=== PATIENT | male | born 1940 | race Caucasian/White ===

== ENCOUNTER 2021-08-10 16:10 | Observation (INO) | payer MEDICARE, MEDICAID, SELFPAY ==
[2021-08-10] VITALS (30 sets, daily range): BP systolic 112–141; BP diastolic 62–94; PULSE 63–76; RESP 12–23; TEMP 36.3–36.8; O2SAT 92–97
--- NOTE | 2021-08-10 16:15 | RT.EKG_ITS ---
APPROVED REPORT Exam: Resting ECG Reason for Exam: tia Patient Location: E HR:68 bpm ECG Measurements Heart Rate 68 AXIS MN 178 P 80 QRSd 139 QRS 1 QT 432 T -15 QTc 459 Conclusion Sinus rhythm...normal P axis, V-rate 60- 99 Right bundle branch block...QRSd>120, terminal axis(90,270). Sinus. RBBB. No STEMI. I have reviewed and interpreted ECG and agree with software generated interpretation.
--- NOTE | 2021-08-10 16:15 | DI.CT_ITS ---
Exam(s) CT BRAIN NECK CTA EXAM: CT BRAIN NECK CTA CLINICAL HISTORY: period of disorientation, r/o cva. TECHNIQUE: Imaging Protocol: Axial CT angiography was performed with multi-slice acquisition and mu lti-planar and/or 3D reconstructions. CONTRAST MATERIAL: Intravenous: Omnipaque 350 Contrast volume:85 mL COMPARISON: No exams were available for comparison FINDINGS: CT Head W/O and W: Ventricles and Extra axial spaces: Normal in size and morphology for the patient's age. Hemorrhage: None. Cerebral parenchyma: No acute territorial infarct. There are areas of decreased attenuation in the w richy matter most consistent with chronic microvascular ischemic disease. Midline shift: None. Brainstem/Cerebellum: Normal. Calvarium: Normal. Visualized Paranasal sinuses/Mastoids: Chronic maxillary sinusitis. The remaining visualized paranas al sinuses and mastoid air cells are clear. Soft Tissues: Unremarkable. Enhancement: Unremarkable. CTA Neck W: Common Carotid: Right: There is occlusion of the right common carotid artery. Left: No dissection, occlusion or significant stenosis. External Carotid: Right: No occlusion or significant stenosis. Left: No occlusion or significant stenosis. Internal Carotid: Right: Significant stenosis/occlusion of the proximal right internal carotid artery. Flow resumes i n the mid internal carotid artery probably via collateral flow from the external carotid artery. Left: No dissection, occlusion or significant stenosis. Vertebral Artery: Right: No dissection, occlusion or significant stenosis. There is a dominant right vertebral artery. Left: No dissection or occlusion. There is hkbn-no-nstesnlo stenosis at the origin of the left vert ebral artery. Lung Apices: Normal. Bones: Reversal of the normal cervical lordosis. Moderately severe degenerative changes in the cervi beth spine. Soft Tissues: Normal. CTA Brain W: Internal Carotid Arteries: Petrous: Normal. Cavernous: Dense calcification of the left internal carotid artery causing tcuz-qg-iyeulgef stenosis. Cerebral: Normal. Anterior Cerebral Arteries: Right: No aneurysm, occlusion or significant stenosis. Left: No aneurysm, occlusion or significant stenosis. Middle Cerebral Arteries: Right: No aneurysm, occlusion or significant stenosis. Left: No aneurysm, occlusion or significant stenosis. Posterior cerebral Arteries: Right: No aneurysm, occlusion or significant stenosis. Left: No aneurysm, occlusion or significant stenosis. Vertebral Arteries: Right: No aneurysm, occlusion or significant stenosis. Left: No aneurysm, occlusion or significant stenosis. Basilar Artery: No aneurysm, occlusion or significant stenosis. IMPRESSION: 1. Boch-qg-gaglwtkq stenosis of the cavernous right ICA. 2. No acute intracranial process. 3. Occlusion of the right common carotid artery. 4. Occlusion of the proximal right ICA with reconstitution at its midpoint. 5. Oagk-xk-rihcbrib stenosis at the origin of the left vertebral artery. RADIATION DOSE DELIVERED: 2,579.63mGy.cm Total DLP DATA REPOSITORY: All CT scans at this facility are submitted to the National Radiology Data Registry (NRDR) Dose Index Registry (DIR) with the [employer] (ACR). RADIATION OPTIMIZATION: All CT scans at this facility use at least one of these dose optimization te chniques: automated exposure control; mA and/or kV adjustment per patient size (includes targeted exa ms where dose is matched to clinical indication); or iterative reconstruction.
--- NOTE | 2021-08-10 16:15 | DI.RAD_ITS ---
Exam(s) XR CHEST 2V PA LATERAL EXAM: XR CHEST 2V PA LATERAL CLINICAL HISTORY: possible tia, r/o acute disease TECHNIQUE: 2D digital imaging was performed. COMPARISON: No exams were available for comparison FINDINGS: MEDIASTINUM: Normal. HEART: Normal. PULMONARY VASCULATURE: Normal. LUNGS: No focal consolidating infiltrate. Mild atelectasis in the lung bases. PLEURAL SPACE: No pleural effusion or pneumothorax. BONE:Within normal limits for the patient's age. OTHER FINDINGS:Normal. IMPRESSION: No focal consolidating infiltrate or evidence of congestive heart failure. DATA REPOSITORY: RADIATION DOSE DELIVERED:
[2021-08-10] MEDS: Normal Saline 500 ML IV (16:40)
[2021-08-10 16:41] LABS: Abs Immature Grans 0.02 10^3/uL (0.0-0.06); Absolute Basophil Count 0.06 10^3/uL (0.0-0.2); Absolute Eosinophil Count 0.26 10^3/uL (0.0-0.7); Absolute Lymphocyte Count 2.96 10^3/uL (1.2-3.4); Absolute Monocyte Count 0.73 10^3/uL (0.1-0.8); Basophils % 0.8; Eosinophils % 3.5; HCT 36.9 % (40.0-50.0); HGB 12.2 g/dL (13.5-17.5); Immature Grans % 0.3; Lymphocytes % 39.8; MCH 31.9 pg (27.0-33.0); MCHC 33.1 % (32.0-36.0); MCV 96.3 fL (80-95); MPV 9.8 fL (8.0-11.0); Monocytes % 9.8; Neutrophils % 45.8; Nucleated RBC 0 %; Platelet Count 153 10^3/uL (130-400); RBC 3.83 10^6/uL (4.36-5.78); RDW 13.2 % (11.8-14.1); RDW-SD 47.1 fL; WBC 7.43 10^3/uL (4.4-10.8)
[2021-08-10 16:57] LABS: ALT 16 U/L (16-63); AST 18 U/L (15-37); Albumin 3.3 g/dL (3.4-5.0); Alkaline Phosphatase 67 U/L (46-116); Anion Gap 6.5 mmol/L (3-11); BUN 20 mg/dL (7-18); Bilirubin, Total 0.5 mg/dL (0.2-1.0); CO2 28.5 mmol/L (21.0-32.0); CREATININE 1.1 mg/dL (0.70-1.30); Calcium 8.6 mg/dL (8.5-10.1); Chloride 106 mmol/L (98-107); Glucose 97 mg/dL (74-106); Potassium 4.1 mmol/L (3.5-5.1); Sodium 141 mmol/L (136-145); Total Protein 7.4 g/dL (6.4-8.2); Troponin I < 0.05 ng/mL (<0.06)
[2021-08-10 16:58] LABS: Magnesium 2.1 mg/dL (1.8-2.4)
--- NOTE | 2021-08-10 17:03 | W.ED.GENAD ---
Discharge Plan Disposition Patient Disposition: [facility] INPATIENT Condition: Stable Discharge Details Clinical Impression: TIA (transient ischemic attack), Carotid artery stenosis, Right carotid artery occlusion Primary Care Provider: Freddie Celis ED Provider: Lamar Ryan Home Meds and New Rx's Prescriptions: No Action tamsulosin 0.4 mg capsule 0.4 mg PO DAILY Qty: 90 RF: 3 latanoprost 2.5 ML drops 1 drp OU HS RF: 0 aspirin [Aspirin Low-Strength] 81 MG tablet,chewable 81 mg PO DAILY Qty: 30 RF: 2 Ketoconazole 15 GM CREAM..G. 1 applic Topical every other day Qty: 60 RF: 4 triamcinolone acetonide 80 GM ointment 1 applic Topical BID Qty: 80 RF: 2 Medical Decision Making 81-year-old male with a history of BPH, coronary artery disease, colon cancer status post hemicolectomy who presents for evaluation after a 3-hour period of confusion, disorientation for evaluation and admission for possible TIA per [facility] care. Patient appears comfortable and nontoxic. He has no focal deficits on exam. He is oriented x3. EKG notes a rate of 68, sinus, right bundle branch block, no STEMI and nondiagnostic. Differential diagnosis includes TIA, CVA, dehydration, arrhythmia, electrolyte abnormality, UTI. Will place an IV, bolus IV fluids, screening labs, urinalysis, CTA head and neck and chest x-ray. Labs and imaging reviewed. White blood cell count 7. Hemoglobin 12. Normal electrolytes. Troponin negative. Chest x-ray negative. CTA head: IMPRESSION: 1. No acute intracranial abnormality. Changes of an acute infarct may not be visible on CT for up to 24 to 48 hours. 2. Kulz-ga-ksnbdido stenosis cavernous right ICA. CTA neck notes: IMPRESSION: 1. Occlusion right common carotid artery. 2. Diminished flow/enhancement right ICA via collateral flow from the ECA. Severe apparent stenosis proximal right ICA, with segment of moderate to severe stenosis at the mid cervical segment right ICA. 3. Kinb-ud-zjhqfeza stenosis origin left vertebral artery. Case discussed with [facility] neurology who reviewed the CTA images. Patient has significant vascular disease but this may be chronic. Agrees with plan for admission and MRI brain tomorrow for possible TIA. Recommends adding Plavix 75 mg p.o. daily to his 81 mg aspirin regimen for dual antiplatelet therapy. Case discussed with hospitalist who accepts patient for admission. Results and plan reviewed with patient and niece who are agreeable with plan. Patient states he is not taking 81 mg aspirin daily. We will add a dose of this now. Medical Records Medical records reviewed: Yes I reviewed the patient's medical records. Imaging Data Radiologic Study: Radiologist's impression: CT Angiography Head With Contrast, Arteriography Exam date and time: 08/10/2021 4:20 PM Age: 81 years old Clinical indication: Other: Period of disorientation, R/O CVA TECHNIQUE: Imaging protocol: Computed tomography angiography of the head with contrast. Exam focused on the arteries. 3D rendering (Not supervised by radiologist): MIP and/or 3D reconstructed images were created by the technologist. Contrast material: OMNIPAQUE 350; Contrast volume: 85 ml; Contrast route: INTRAVENOUS (IV); COMPARISON: No relevant prior studies available. FINDINGS: ANTERIOR CIRCULATION: Right internal carotid artery: Keib-fp-ctttuuve stenosis cavernous right ICA. Right middle cerebral artery: Unremarkable. No occlusion or significant stenosis. No aneurysm. Right anterior cerebral artery: Unremarkable. No occlusion or significant stenosis. No aneurysm. Left internal carotid artery: Unremarkable. Intracranial segment is patent with no significant stenosis. No aneurysm. Left middle cerebral artery: Unremarkable. No occlusion or significant stenosis. No aneurysm. Left anterior cerebral artery: Unremarkable. No occlusion or significant stenosis. No aneurysm. POSTERIOR CIRCULATION: Right vertebral artery: Unremarkable. No occlusion or significant stenosis. No aneurysm. Left vertebral artery: Unremarkable. No occlusion or significant stenosis. No aneurysm. Basilar artery: Unremarkable. No occlusion or significant stenosis. No aneurysm. Right posterior cerebral artery: Unremarkable. No occlusion or significant stenosis. No aneurysm. Left posterior cerebral artery: Unremarkable. No occlusion or significant stenosis. No aneurysm. Brain: Hypodensities at the basal ganglia consistent with remote lacunar infarctions. Moderate small vessel ischemic changes in the perventricular white matter. No evidence of an acute cortical infarct. Cerebral ventricles: Diffuse global atrophy. No abnormal extra-axial fluid collections are identified. No midline shift or herniation. Bones/joints: Old facial fractures. Soft tissues: Unremarkable. Paranasal sinuses: Minimal paranasal sinus disease. IMPRESSION: 1. No acute intracranial abnormality. Changes of an acute infarct may not be visible on CT for up to 24 to 48 hours. 2. Euak-tm-bdglbhfu stenosis cavernous right ICA. CT Angiography Neck With Contrast Exam date and time: 08/10/2021 4:20 PM Age: 81 years old Clinical indication: Other: Period of disorientation, R/O CVA TECHNIQUE: Imaging protocol: Computed tomography angiography of the neck with contrast. 3D rendering (Not supervised by radiologist): MIP and/or 3D reconstructed images were created by the technologist. Radiation optimization: All CT scans at this facility use at least one of these dose optimization techniques: automated exposure control; mA and/or kV adjustment per patient size (includes targeted exams where dose is matched to clinical indication); or iterative reconstruction. Contrast material: OMNIPAQUE 350; Contrast volume: 85 ml; Contrast route: INTRAVENOUS (IV); COMPARISON: No relevant prior studies available. FINDINGS: Right common carotid artery: Occlusion right common carotid artery. Right internal carotid artery: See Right external carotid artery finding. Right external carotid artery: Diminished flow/enhancement right ICA via collateral flow from the ECA. Severe apparent stenosis proximal right ICA, with segment of moderate to severe stenosis at the mid cervical segment right ICA. Left common carotid artery: No stenosis. No dissection or occlusion. Left internal carotid artery: No stenosis of the extracranial segment. No dissection or occlusion. Left external carotid artery: No occlusion or stenosis of the origin. Right vertebral artery: No stenosis. No dissection or occlusion. Right vertebral artery dominant. Left vertebral artery: Jwsz-rp-wpvvckzd stenosis origin left vertebral artery. Remainder of the left vertebral artery patent and unremarkable. Soft tissues: Normal. No significant soft tissue swelling. Bones/joints: No acute fracture. IMPRESSION: 1. Occlusion right common carotid artery. 2. Diminished flow/enhancement right ICA via collateral flow from the ECA. Severe apparent stenosis proximal right ICA, with segment of moderate to severe stenosis at the mid cervical segment right ICA. 3. Iget-yr-cyularwk stenosis origin left vertebral artery. XR Chest Exam date and time: 08/10/2021 4:21 PM Age: 81 years old Clinical indication: Patient HX: Possible TIA, ro/o acute disease TECHNIQUE: Imaging protocol: XR of the chest. Views: 2 views. COMPARISON: CR CHEST 2 VIEWS PA,LAT 09/11/2016 2:57 PM FINDINGS: Lungs: Pulmonary vascular markings upper normal. Mild airspace disease and/or atelectasis both lung bases. Pleural spaces: Unremarkable. No pleural effusion. No pneumothorax. Heart/Mediastinum: Mild cardiomegaly. Bones/joints: Unremarkable. IMPRESSION: Mild airspace disease and/or atelectasis both lung bases. Lab Data Lab results reviewed: Yes I reviewed the patient's lab results. Labs: Laboratory Tests Range/Units 08/10/21 08/10/21 08/10/21 16:20 16:20 16:20 WBC (4.4-10.8) 10^3/uL 7.43 RBC (4.36-5.78) 10^6/uL 3.83 L Hgb (13.5-17.5) g/dL 12.2 L Hct (40.0-50.0) % 36.9 L MCV (80-95) fL 96.3 H MCH (27.0-33.0) pg 31.9 MCHC (32.0-36.0) % 33.1 RDW (11.8-14.1) % 13.2 Plt Count (130-400) 10^3/uL 153 MPV (8.0-11.0) fL 9.8 Immature Gran % 0.3 Neutrophils % 45.8 Lymphocytes % 39.8 Monocytes % 9.8 Eosinophils % 3.5 Basophils % 0.8 Nucleated RBC % % 0 Absolute Neutrophils (1.2-6.7) 10^3/uL 3.40 Absolute Lymphocytes (1.2-3.4) 10^3/uL 2.96 Absolute Monocytes (0.1-0.8) 10^3/uL 0.73 Absolute Eosinophils (0.0-0.7) 10^3/uL 0.26 Absolute Basophils (0.0-0.2) 10^3/uL 0.06 Sodium (136-145) mmol/L 141 Potassium (3.5-5.1) mmol/L 4.1 Chloride (98-107) mmol/L 106 Carbon Dioxide (21.0-32.0) mmol/L 28.5 Anion Gap (3-11) mmol/L 6.5 BUN (7-18) mg/dL 20 H Creatinine (0.70-1.30) mg/dL 1.1 Estimated GFR/1.73 m2 (mL/min/1.73m2) >= 60.00 Glucose (74-106) mg/dL 97 Calcium (8.5-10.1) mg/dL 8.6 Magnesium (1.8-2.4) mg/dL 2.1 Total Bilirubin (0.2-1.0) mg/dL 0.5 AST (15-37) U/L 18 ALT (16-63) U/L 16 Alkaline Phosphatase (46-116) U/L 67 Troponin I (<0.06) ng/mL < 0.05 Total Protein (6.4-8.2) g/dL 7.4 Albumin (3.4-5.0) g/dL 3.3 L ECG Data Attestation: I personally reviewed and interpreted this ECG (s) as follows: Interpretation: rate of 68, sinus. RBBB. No STEMI. HPI General Mode of arrival: wheelchair. Date/Time Provider Initiated Documentation: 08/10/21 16:15. Limitations to Documentation: no limitations. Information obtained by: patient and family. HPI Narrative: Patient is a an 81-year-old male with a history of BPH, coronary artery disease, colon cancer with hemicolectomy and hernia repair presents for a 3-hour period of agitation, disorientation and confusion today for possible TIA and admission per [facility]. Patient lives at the [place] and use his electric scooter to go to [employer] today. The staff there know him well and they note that patient appeared agitated and confused. They called patient's niece to pick him up and she noted that he appeared unlike his baseline. 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 She states patient appears more like his baseline at present. Patient does endorse that he did feel confused. Patient is currently oriented x3. He denies any headache, blurry vision, slurred speech, chest pain, shortness of breath, abdominal pain, vomiting, diarrhea, urinary symptoms, unilateral numbness or weakness. Related Data Home Medications Medication Instructions Recorded Confirmed aspirin [Aspirin Low-Strength] 81 mg PO DAILY #30 tab-cap 08/28/15 08/10/21 latanoprost 1 drp OU HS drp 08/28/15 08/10/21 triamcinolone acetonide 1 applic TOPICAL BID #80 gm 01/29/18 08/10/21 tamsulosin 0.4 mg capsule 0.4 mg PO DAILY #90 cap 10/27/20 08/10/21 Previous Rx's Medication Instructions Recorded triamcinolone acetonide 1 applic TOPICAL BID #80 gm 01/29/18 tamsulosin 0.4 mg capsule 0.4 mg PO DAILY #90 cap 10/27/20 Allergies Allergy/AdvReac Type Severity Reaction Status Date / Time terbinafine Allergy Severe swelling Verified 08/10/21 16:36 and redness of face General Stated Complaint: CVA/TIA MONTEZ: 2 Review of Systems All systems reviewed & are unremarkable except as noted in HPI and below Constitutional Constitutional: Reports as per HPI, Denies chills and Denies fever(s) Eyes Eyes: Denies blurry vision ENT Ears, Nose, Mouth, and Throat: Denies dizziness, Denies sore throat and Denies throat swelling Cardiovascular Cardiovascular: Denies chest pain and Denies dyspnea Respiratory Respiratory: Denies cough and Denies dyspnea Gastrointestinal Gastrointestinal: Denies abdominal pain, Denies diarrhea and Denies vomiting Genitourinary Genitourinary: Denies hematuria and Denies dysuria Musculoskeletal Musculoskeletal: Denies back pain and Denies numbness Integumentary/Breasts Skin/Breast: Denies lesions and Denies rash Neurologic Neurologic: Reports confusion, Denies dizziness, Denies localized weakness and Denies numbness Psychiatric Psychiatric: Reports confusion Allergic/Immunologic Allergic/Immunologic: Denies throat swelling [facility] Medical History (Updated 08/10/21 @ 19:23 by Lamar Ryan DO) Aortic valve sclerosis History of hemicolectomy Malignant neoplasm of intestinal tract Obstruction of right carotid artery Tinea pedis Surgical History (Updated 07/31/19 @ 11:36 by Ramu Patel) Extraction of cataract B/L 01/2015 Hemicolectomy 06/03/15; [facility]; RIGHT Hernia Repair, Incisional (08/10/16) Family History Brother Personal history of malignant neoplasm PROSTATE Brother No problems noted. Mother No problems noted. Father No problems noted. Social History (Updated 08/07/18 @ 14:42 by Edith Augustin) Smoking/Tobacco Use Status: Former Tobacco Use Smoking risk assessment performed?: Yes Alcohol Intake: never Drug use: Never Substance use type: does not use Frequency: other Details: STRETCHES DAILY Seatbelt use: always Exam Const General: cooperative and no acute distress HENMT Head: normal to inspection Face and sinus: normal facial exam Eyes General: appearance normal, both eyes and all related structures Pupils: PERRL EOM: EOM intact bilaterally Neck Neck: normal visual inspection and No submandibular swelling Lymphatic: no lymphadenopathy noted Chest Chest: normal inspection of the chest and no tenderness Resp Effort & Inspection: normal respiratory effort and able to speak in complete sentences Auscultation: clear to auscultation bilaterally Cardio Rate: regular rate Rhythm: regular rhythm GI Inspection: normal to inspection Palpation: soft, not firm, not rigid and nontender Auscultation: normal bowel sounds Back/Spine/Pelvis Thoracic/Lumbar Spine: thoracic and lumbar spine normal to inspection Skin General skin exam: no rashes or lesions noted Neuro General: patient alert, patient awake, patient oriented x3, moves all extremities, no meningeal signs and no focal motor deficits Cranial Nerves: CN's II-XI intact bilaterally Cognition: normal cognition Speech: speech normal Motor: muscle tone normal throughout, strength 5/5 throughout and no pronator drift Sensory Exam: no sensory deficits noted Extrem General: normal to inspection, full ROM, capillary refill normal, no calf tenderness bilaterally and no edema Psych Appearance: grossly normal Mental Status: mental status grossly normal Speech and Movement: speech and movement normal Affect: normal affect Course Vital Signs Vital signs: Vital Signs Temperature 97.3 F L 08/10/21 16:23 Pulse 70 08/10/21 16:23 Respiratory Rate 13 08/10/21 16:23 Blood Pressure 141/75 H 08/10/21 16:23 Pulse Oximetry 97 08/10/21 16:23 Temperature 97.3 F L 08/10/21 16:23 Temperature Source Skin 08/10/21 16:23 Pulse 70 08/10/21 16:23 Respiratory Rate 13 08/10/21 16:23 Respiratory Effort Non-Labored 08/10/21 16:23 Blood Pressure 141/75 H 08/10/21 16:23 Blood Pressure Position Supine 08/10/21 16:23 Pulse Oximetry 97 08/10/21 16:23 Oxygen Delivery Method Room Air 08/10/21 16:23 Oxygen Flow Rate 0 08/10/21 16:23 Pain Level 0 08/10/21 16:23 Lab/Test Results Lab/Test Results: Laboratory Tests Range/Units 08/10/21 08/10/21 08/10/21 16:20 16:20 16:20 WBC (4.4-10.8) 10^3/uL 7.43 RBC (4.36-5.78) 10^6/uL 3.83 L Hgb (13.5-17.5) g/dL 12.2 L Hct (40.0-50.0) % 36.9 L MCV (80-95) fL 96.3 H MCH (27.0-33.0) pg 31.9 MCHC (32.0-36.0) % 33.1 RDW (11.8-14.1) % 13.2 Plt Count (130-400) 10^3/uL 153 MPV (8.0-11.0) fL 9.8 Immature Gran % 0.3 Neutrophils % 45.8 Lymphocytes % 39.8 Monocytes % 9.8 Eosinophils % 3.5 Basophils % 0.8 Nucleated RBC % % 0 Absolute Neutrophils (1.2-6.7) 10^3/uL 3.40 Absolute Lymphocytes (1.2-3.4) 10^3/uL 2.96 Absolute Monocytes (0.1-0.8) 10^3/uL 0.73 Absolute Eosinophils (0.0-0.7) 10^3/uL 0.26 Absolute Basophils (0.0-0.2) 10^3/uL 0.06 Sodium (136-145) mmol/L 141 Potassium (3.5-5.1) mmol/L 4.1 Chloride (98-107) mmol/L 106 Carbon Dioxide (21.0-32.0) mmol/L 28.5 Anion Gap (3-11) mmol/L 6.5 BUN (7-18) mg/dL 20 H Creatinine (0.70-1.30) mg/dL 1.1 Estimated GFR/1.73 m2 (mL/min/1.73m2) >= 60.00 Glucose (74-106) mg/dL 97 Calcium (8.5-10.1) mg/dL 8.6 Magnesium (1.8-2.4) mg/dL 2.1 Total Bilirubin (0.2-1.0) mg/dL 0.5 AST (15-37) U/L 18 ALT (16-63) U/L 16 Alkaline Phosphatase (46-116) U/L 67 Troponin I (<0.06) ng/mL < 0.05 Total Protein (6.4-8.2) g/dL 7.4 Albumin (3.4-5.0) g/dL 3.3 L
[2021-08-10] MEDS: Omnipaque 350 MG/ML 100 ML BTL IV (18:05)
--- NOTE | 2021-08-10 18:05 | DI.VRAD_ITS ---
PROCEDURE INFORMATION: Exam: XR Chest Exam date and time: 08/10/2021 4:21 PM Age: 81 years old Clinical indication: Patient HX: Possible TIA, ro/o acute disease TECHNIQUE: Imaging protocol: XR of the chest. Views: 2 views. COMPARISON: CR CHEST 2 VIEWS PA,LAT 09/11/2016 2:57 PM FINDINGS: Lungs: Pulmonary vascular markings upper normal. Mild airspace disease and/or atelectasis both lung bases. Pleural spaces: Unremarkable. No pleural effusion. No pneumothorax. Heart/Mediastinum: Mild cardiomegaly. Bones/joints: Unremarkable. IMPRESSION: Mild airspace disease and/or atelectasis both lung bases. Dictated and Authenticated by: Chris Ayala MD. Ordering:NICHOLAS Newton MD
[2021-08-10] MEDS: Normal Saline Flush 10 ML SYR IVP (18:06)
--- NOTE | 2021-08-10 18:37 | DI.VRAD_ITS ---
PROCEDURE INFORMATION: Exam: CT Angiography Head With Contrast, Arteriography Exam date and time: 08/10/2021 4:20 PM Age: 81 years old Clinical indication: Other: Period of disorientation, R/O CVA TECHNIQUE: Imaging protocol: Computed tomography angiography of the head with contrast. Exam focused on the arteries. 3D rendering (Not supervised by radiologist): MIP and/or 3D reconstructed images were created by the technologist. Contrast material: OMNIPAQUE 350; Contrast volume: 85 ml; Contrast route: INTRAVENOUS (IV); COMPARISON: No relevant prior studies available. FINDINGS: ANTERIOR CIRCULATION: Right internal carotid artery: Lziy-hh-yrwhicyc stenosis cavernous right ICA. Right middle cerebral artery: Unremarkable. No occlusion or significant stenosis. No aneurysm. Right anterior cerebral artery: Unremarkable. No occlusion or significant stenosis. No aneurysm. Left internal carotid artery: Unremarkable. Intracranial segment is patent with no significant stenosis. No aneurysm. Left middle cerebral artery: Unremarkable. No occlusion or significant stenosis. No aneurysm. Left anterior cerebral artery: Unremarkable. No occlusion or significant stenosis. No aneurysm. POSTERIOR CIRCULATION: Right vertebral artery: Unremarkable. No occlusion or significant stenosis. No aneurysm. Left vertebral artery: Unremarkable. No occlusion or significant stenosis. No aneurysm. Basilar artery: Unremarkable. No occlusion or significant stenosis. No aneurysm. Right posterior cerebral artery: Unremarkable. No occlusion or significant stenosis. No aneurysm. Left posterior cerebral artery: Unremarkable. No occlusion or significant stenosis. No aneurysm. Brain: Hypodensities at the basal ganglia consistent with remote lacunar infarctions. Moderate small vessel ischemic changes in the perventricular white matter. No evidence of an acute cortical infarct. Cerebral ventricles: Diffuse global atrophy. No abnormal extra-axial fluid collections are identified. No midline shift or herniation. Bones/joints: Old facial fractures. Soft tissues: Unremarkable. Paranasal sinuses: Minimal paranasal sinus disease. IMPRESSION: 1. No acute intracranial abnormality. Changes of an acute infarct may not be visible on CT for up to 24 to 48 hours. 2. Acmd-na-bqohzloh stenosis cavernous right ICA. PROCEDURE INFORMATION: Exam: CT Angiography Neck With Contrast Exam date and time: 08/10/2021 4:20 PM Age: 81 years old Clinical indication: Other: Period of disorientation, R/O CVA TECHNIQUE: Imaging protocol: Computed tomography angiography of the neck with contrast. 3D rendering (Not supervised by radiologist): MIP and/or 3D reconstructed images were created by the technologist. Radiation optimization: All CT scans at this facility use at least one of these dose optimization techniques: automated exposure control; mA and/or kV adjustment per patient size (includes targeted exams where dose is matched to clinical indication); or iterative reconstruction. Contrast material: OMNIPAQUE 350; Contrast volume: 85 ml; Contrast route: INTRAVENOUS (IV); COMPARISON: No relevant prior studies available. FINDINGS: Right common carotid artery: Occlusion right common carotid artery. Right internal carotid artery: See Right external carotid artery finding. Right external carotid artery: Diminished flow/enhancement right ICA via collateral flow from the ECA. Severe apparent stenosis proximal right ICA, with segment of moderate to severe stenosis at the mid cervical segment right ICA. Left common carotid artery: No stenosis. No dissection or occlusion. Left internal carotid artery: No stenosis of the extracranial segment. No dissection or occlusion. Left external carotid artery: No occlusion or stenosis of the origin. Right vertebral artery: No stenosis. No dissection or occlusion. Right vertebral artery dominant. Left vertebral artery: Nwjc-ki-kkywokpn stenosis origin left vertebral artery. Remainder of the left vertebral artery patent and unremarkable. Soft tissues: Normal. No significant soft tissue swelling. Bones/joints: No acute fracture. IMPRESSION: 1. Occlusion right common carotid artery. 2. Diminished flow/enhancement right ICA via collateral flow from the ECA. Severe apparent stenosis proximal right ICA, with segment of moderate to severe stenosis at the mid cervical segment right ICA. 3. Fidd-vb-jqbzyxvi stenosis origin left vertebral artery. REFERENCES: NASCET CRITERIA. The degree of internal carotid artery stenosis is based on NASCET criteria. Normal is no stenosis. Mild is less than 50% stenosis. Moderate is 50-69% stenosis. Severe is 70% to 99% stenosis. Total occlusion is no detectable patent lumen. Dictated and Authenticated by: Chris Ayala MD. Ordering:NICHOLAS Newton MD
[2021-08-10 19:41] LABS: Source Nasal/Nares
[2021-08-10] MEDS: Clopidogrel 75 MG TAB PO (20:16)
--- NOTE | 2021-08-10 21:24 | W.PM.HP.N ---
Date of service: 08/10/21 Time of Service: 21:25 Assessment and Plan Assessment and plan (1) TIA (transient ischemic attack): Status: Acute Assessment and plan: referred to observation on telemetry MRI of brain for tomorrow. neuro check overnight discussed with neurology at [facility] [place], recommends dual platelet therapy. (2) Carotid artery stenosis: Status: Acute Assessment and plan: will refer to vascular surgery outpatient (3) BPH (benign prostatic hyperplasia): Status: Chronic Assessment and plan: continue tamsulosin (4) Left leg swelling: Status: Acute Assessment and plan: reports chronic or recurring. will check US of lexy Dennis case will be discussed with DR Bridges. History of Present Illness Narrative: this is an 81 year old male with history of CAD, BPH, colon cancer who was referred to the ED from urgent care for c/o a 3 hour period of confusion and disorientation. On arrival his symptoms have resolved. He underwent a routine stroke evaluation. He had no focal deficits on exam. He is oriented x3. EKG notes a rate of 68, sinus, right bundle branch block, no STEMI and nondiagnostic. CTA head and neck showed mild to moderate stenosis of cavernous right ICA and occlusion right common carotid artery, diminished flow/enhancement right ICA via collateral flow from the ECA. Severe apparent stenosis proximal right ICA, with segment of moderate to severe stenosis at the mid cervical segment right ICA, and cris-ig-pykigffy stenosis origin left vertebral artery. His case was discussed with [facility] neurology who reviewed the CTA images. Patient has significant vascular disease but this may be chronic. Agrees with plan for admission and MRI brain tomorrow for possible TIA. Recommends adding Plavix 75 mg p.o. daily to his 81 mg aspirin regimen for dual antiplatelet therapy. hospitalist services is contacted and accepts him in admission for further work up and monitoring. Review of Systems All systems reviewed & are unremarkable except as noted in HPI and below Neurologic Neurologic: Reports confusion Psychiatric Psychiatric: Reports confusion [facility] Medical History (Updated 08/10/21 @ 22:17 by Nicolasa Mcgrath NP) Aortic valve sclerosis History of hemicolectomy Malignant neoplasm of intestinal tract Obstruction of right carotid artery Tinea pedis Surgical History (Updated 07/31/19 @ 11:36 by Ramu Patel) Extraction of cataract B/L 01/2015 Hemicolectomy 06/03/15; [facility]; RIGHT Hernia Repair, Incisional (08/10/16) Family History Brother Personal history of malignant neoplasm PROSTATE Brother No problems noted. Mother No problems noted. Father No problems noted. Social History (Updated 08/07/18 @ 14:42 by Edith Augustin) Smoking/Tobacco Use Status: Former Tobacco Use Smoking risk assessment performed?: Yes Alcohol Intake: never Drug use: Never Substance use type: does not use Frequency: other Details: STRETCHES DAILY Seatbelt use: always Meds Allergies and Home Medications Allergies Allergy/AdvReac Type Severity Reaction Status Date / Time terbinafine Allergy Severe swelling Verified 08/10/21 16:36 and redness of face Home Medications Medication Instructions Recorded Confirmed Type aspirin [Aspirin Low-Strength] 81 mg PO DAILY #30 tab-cap 08/28/15 08/10/21 History latanoprost 1 drp OU HS drp 08/28/15 08/10/21 History Ketoconazole 1 applic TOPICAL every other day 10/10/17 08/10/21 Clinic #60 gm triamcinolone acetonide 1 applic TOPICAL BID #80 gm 01/29/18 08/10/21 Rx tamsulosin 0.4 mg capsule 0.4 mg PO DAILY #90 cap 10/27/20 08/10/21 Rx Exam Const General: cooperative and no acute distress HENMT Head: normal to inspection Face and sinus: normal facial exam Eyes General: appearance normal, both eyes and all related structures Pupils: PERRL EOM: EOM intact bilaterally Neck Neck: normal visual inspection and No submandibular swelling Lymphatic: no lymphadenopathy noted Chest Chest: normal inspection of the chest and no tenderness Resp Effort & Inspection: normal respiratory effort and able to speak in complete sentences Auscultation: clear to auscultation bilaterally Cardio Rate: regular rate Rhythm: regular rhythm GI Inspection: normal to inspection Palpation: soft, not firm, not rigid and nontender Auscultation: normal bowel sounds Back/Spine/Pelvis Thoracic/Lumbar Spine: thoracic and lumbar spine normal to inspection Skin General skin exam: no rashes or lesions noted Neuro General: patient alert, patient awake, patient oriented x3, moves all extremities, no meningeal signs and no focal motor deficits Cranial Nerves: CN's II-XI intact bilaterally Cognition: normal cognition Speech: speech normal Motor: muscle tone normal throughout, strength 5/5 throughout and no pronator drift Sensory Exam: no sensory deficits noted Extrem General: normal to inspection, full ROM, capillary refill normal, no calf tenderness bilaterally and edema Laterality: left Psych Appearance: grossly normal Mental Status: mental status grossly normal Speech and Movement: speech and movement normal Affect: normal affect Results Labs Result diagrams: 08/10/21 16:20 08/10/21 16:20 Labs: Laboratory Results - last 24 hr 08/10/21 08/10/21 08/10/21 16:20 16:20 16:20 WBC 7.43 RBC 3.83 L Hgb 12.2 L Hct 36.9 L MCV 96.3 H MCH 31.9 MCHC 33.1 RDW 13.2 Plt Count 153 MPV 9.8 Immature Gran % 0.3 Neutrophils % 45.8 Lymphocytes % 39.8 Monocytes % 9.8 Eosinophils % 3.5 Basophils % 0.8 Nucleated RBC % 0 Absolute Neutrophils 3.40 Absolute Lymphocytes 2.96 Absolute Monocytes 0.73 Absolute Eosinophils 0.26 Absolute Basophils 0.06 Sodium 141 Potassium 4.1 Chloride 106 Carbon Dioxide 28.5 Anion Gap 6.5 BUN 20 H Creatinine 1.1 Estimated GFR/1.73 m2 >= 60.00 Glucose 97 Calcium 8.6 Magnesium 2.1 Total Bilirubin 0.5 AST 18 ALT 16 Alkaline Phosphatase 67 Troponin I < 0.05 Total Protein 7.4 Albumin 3.3 L COVID-19 Source 08/10/21 19:03 WBC RBC Hgb Hct MCV MCH MCHC RDW Plt Count MPV Immature Gran % Neutrophils % Lymphocytes % Monocytes % Eosinophils % Basophils % Nucleated RBC % Absolute Neutrophils Absolute Lymphocytes Absolute Monocytes Absolute Eosinophils Absolute Basophils Sodium Potassium Chloride Carbon Dioxide Anion Gap BUN Creatinine Estimated GFR/1.73 m2 Glucose Calcium Magnesium Total Bilirubin AST ALT Alkaline Phosphatase Troponin I Total Protein Albumin COVID-19 Source Nasal/Nares Last Vital Signs Temp 36.3 C L 08/10/21 21:18 Pulse 73 08/10/21 21:18 Resp 18 08/10/21 21:18 BP 119/62 08/10/21 21:18 Pulse Ox 94 08/10/21 21:18
[2021-08-10 22:06] LABS: COVID-19 PCR Negative (Negative)
[2021-08-11] VITALS (10 sets, daily range): BP systolic 103–137; BP diastolic 55–76; PULSE 60–73; RESP 13–18; TEMP 36.3–37.1; O2SAT 94–97
--- NOTE | 2021-08-11 | DI.US_ITS ---
APPROVED REPORT EXAM: Comprehensive 2D, Doppler, and color-flow Echocardiogram Patient Location: In-Patient Room/Bed: 208 Bicycle Subassembler: Sinai Ulloa RDCS (AE) Indications: TIA Echo Enhancing Agent Indication: Rule out Shunt Agent(s) / Amount(s) Used: Agitated Saline 24.0 cc Other Information Study Quality: Adequate Conclusion Patient was on stretcher and exam was done supine. Normal left ventricular thickness and chamber size. Estimated ejection fraction is 60 to 70%. Wall motion is normal Both atria are normal in size Agitated saline bubble study does not disclose any intra-atrial shunt The aortic valve is trileaflet and sclerotic. There is mild aortic stenosis with a mean gradient of 11 mmHg. There is no aortic regurgitation Mild mitral annular calcification, trace mitral regurgitation The pulmonic and tricuspid valves are structurally normal. Trace pulmonic and tricuspid regurgitatio n. Unable to estimate right ventricular systolic pressure Mildly dilated ascending aorta and aortic root Wall motion Left Ventricle The left ventricle is normal size. The left ventricular systolic function is normal. The left ventric ular ejection fraction is within the normal range. There is normal left ventricular wall thickness. T here is normal LV segmental wall motion. There is no ventricular septal defect visualized. LVEF is 60 %. Right Ventricle The right ventricle is normal size. The right ventricular systolic function is normal. Atria The left atrium size is normal. The right atrium size is normal. The interatrial septum is intact wit h no evidence for an atrial septal defect. Saline bubble contrast intravenous injection does not demo nstrate PFO. Aortic Valve Aortic valve is calcified. Aortic valve is trileaflet. There is mild valvular aortic stenosis. No aor tic regurgitation is present. Mitral Valve Mild mitral annular calcification. No evidence of mitral valve stenosis. Trace mitral regurgitation. Tricuspid Valve The tricuspid valve is normal in structure. There is no tricuspid valve stenosis. Trace tricuspid reg urgitation. Unable to assess PA pressure. Pulmonic Valve The pulmonary valve is normal in structure. There is no pulmonic valvular stenosis. Trace pulmonic re gurgitation. Great Vessels Aortic root is mildly dilated. The ascending aorta is mildly dilated. IVC is normal in size and colla pses >50% with inspiration. Pericardium There is no pericardial effusion. 2D Dimensions IVSD d PLAX 0.86 cm M: 0.6-1.2 LV Vol A2C d MOD 90.3 mL LVPW d PLAX 0.90 cm M: 0.6 - 1.2 LV Vol A4C d MOD 108.8 mL LVID d PLAX 5.40 cm M: 4.2 - 5.8 LA vol/ BSA A2C s A-L 31.1 mL/m2 LVDs 3.65 cm M: 2.5 - 4.0 LA vol/ BSA A4C s A-L 41.6 mL/m2 Ao Root d 3.88 cm M: 3.1 - 3.7 LA Vol/ BSA Biplane s A-L 36.0 mL/m2 RA Area A4C 18.13 cm2 LA Area A4C s MOD 26.03 cm2 RA Vol/ BSA A4C s A-L 24.9 mL/m2 LA Area A2C s MOD 22.51 cm2 Ao Asc Diam d 3.64 cm M: 2.6 - 3.4 LV EF A4C MOD 59.8 % LV EF Teichholz 58.9 % LV EF A2C MOD 59.9 % LVEF (Perez's) 59.70 % M: 52 - 72 LV EF Biplane MOD 59.7 % LV Volume 75.49 mL M: 62 - 150 SV 60.28 mL LV Volume Index 37.37 mL/m2 M: 34 - 74 SV Index 29.85 mL/m2 LV Vol Biplane MOD 101.0 mL FS 31.50 % M-Mode TAPSE 2.56 cm (M/F) >1.7 LV Diastology MV E' medial 0.053 (>0.07 m/s) E/A Ratio 0.6 LV E/e MED 13.75 (<14) MV E Vmax 0.73 (0.4-1.3 m/s) MV E' lateral 0.059 (>0.1 m/s) MV A Vmax 1.15 (0.4-1.3 m/s) LV E/e LAT 12.20 (<14) MV E/A Ratio 0.61 MV E/E' medial 13.75 MV E/E' lateral 12.25 Aortic Valve LVOT Area 3.94 cm2 LVOT Diam s 2.20 cm AoV Vmax 2.25 m/s AoV Mean Eric. 1.56 m/s AoV Peak Grad 20.2 mmHg AoV Mean Grad 11.2 mmHg AoV VTI 0.388 m Mitral Valve MV DT 343 (160-240 msec) MV PHT 100 msec MV Area PHT 2.21 cm2 MV VTI 0.411 m Pulmonary Valve PV Vmax 1.42 (0.5-1.5 m/s) RVOT Peak Gr. 2.90 mmHg PV Peak Grad 8.0 mmHg RVOT Mean Gr. 1.40 mmHg PV Mean Grad 4.1 mmHg RVOT VTI 0.152 m PV VTI 0.294 m RVOT Vmax 0.85 m/s
--- NOTE | 2021-08-11 | DI.US_ITS ---
Exam(s) US LOWER EXTREMITY VENOUS LT EXAM: US LOWER EXTREMITY VENOUS LT CLINICAL HISTORY: swelling TECHNIQUE: Left lower extremity venous ultrasound performed using grayscale, color-flow, and spectra l Doppler analysis. COMPARISON: No exams were available for comparison FINDINGS: The left common femoral, femoral and popliteal veins demonstrate normal compressibility, augmentation , and color Doppler. There is thrombus seen in one of the paired posterior tibialis veins. It measur es 2 cm in length. The saphenofemoral junction is unremarkable. There is no evidence of a Pina cys t. The soft tissues are unremarkable. IMPRESSION: There is a DVT in one of the 2 paired posterior tibialis veins which measures 2 cm in length. DATA REPOSITORY:
[2021-08-11 07:09] LABS: Abs Immature Grans 0.01 10^3/uL (0.0-0.06); Absolute Basophil Count 0.04 10^3/uL (0.0-0.2); Absolute Eosinophil Count 0.25 10^3/uL (0.0-0.7); Absolute Lymphocyte Count 1.76 10^3/uL (1.2-3.4); Absolute Monocyte Count 0.64 10^3/uL (0.1-0.8); Absolute Neutrophil Count 2.85 10^3/uL (1.2-6.7); Basophils % 0.7; Eosinophils % 4.5; HCT 32.9 % (40.0-50.0); HGB 10.8 g/dL (13.5-17.5); Immature Grans % 0.2; Lymphocytes % 31.7; MCH 31.3 pg (27.0-33.0); MCHC 32.8 % (32.0-36.0); MCV 95.4 fL (80-95); MPV 10.1 fL (8.0-11.0); Monocytes % 11.5; Neutrophils % 51.4; Nucleated RBC 0 %; Platelet Count 130 10^3/uL (130-400); RBC 3.45 10^6/uL (4.36-5.78); RDW 13.2 % (11.8-14.1); RDW-SD 45.5 fL; WBC 5.55 10^3/uL (4.4-10.8)
[2021-08-11 07:20] LABS: Anion Gap 5.7 mmol/L (3-11); BUN 17 mg/dL (7-18); CO2 26.3 mmol/L (21.0-32.0); CREATININE 0.9 mg/dL (0.70-1.30); Calcium 7.8 mg/dL (8.5-10.1); Chloride 108 mmol/L (98-107); Glucose 91 mg/dL (74-106); Sodium 140 mmol/L (136-145)
--- NOTE | 2021-08-11 08:00 | DI.MRI_ITS ---
Exam(s) MR BRAIN WO EXAM: MR BRAIN WO CLINICAL HISTORY: TIA, confusion, TECHNIQUE: Multiplanar multisequence MRI of the brain was performed. COMPARISON: CT CT BRAIN NECK CTA from 08/10/[address] BRAIN NECK CTA from 08/10/2021 FINDINGS: VENTRICLES AND EXTRA AXIAL SPACES: There is global cerebral atrophy. MIDLINE SHIFT: None. CEREBRAL PARENCHYMA: No focus of restricted diffusion to suggest acute infarct. No space-occupying le nanci identified. There are multiple areas of hyperintense signal in the white matter on the T2 and FL AIR images most consistent with chronic microvascular ischemic disease. HEMORRHAGE: None. BRAINSTEM/CEREBELLUM: Normal. CALVARIUM: Normal. VISUALIZED PARANASAL SINUSES/MASTOIDS:Clear. CHER-AE HEIGHTS OF CAVAZOS: There is loss of the normal flow void in the cavernous right ICA consistent with th e patient's dense calcification and moderate stenosis seen on the CT angiography of the brain from th e day prior. The flow void in the xcnfrp-hi-Ghmefm is otherwise well maintained. PITUITARY GLAND: Unremarkable. OTHER FINDINGS: None. IMPRESSION: 1. No evidence of an acute infarct. 2. Cerebral atrophy and small vessel ischemic disease. 3. Findings consistent with the patient's moderate stenosis of the cavernous portion of the right ICA . DATA REPOSITORY:
[2021-08-11] MEDS: Aspirin 81 MG CHEW PO (08:43)
[2021-08-11] MEDS: Tamsulosin 0.4 MG CAPCR PO (08:43)
[2021-08-11] MEDS: Clopidogrel 75 MG TAB PO (08:43)
[2021-08-11 09:25] LABS: NT-proBNP 296 pg/mL (<300)
[2021-08-11 09:30] LABS: Hemoglobin A1C 5.8 % (<5.7)
[2021-08-11 09:46] LABS: Calculated LDL 129 mg/dL (<100); Cholesterol 193 mg/dL (<200); HDL Cholesterol 51 mg/dL (40-60); Triglyceride 68 mg/dL (<150); Vitamin B12 195 pg/mL (193-986)
--- NOTE | 2021-08-11 11:44 | IN_ITS ---
Date of service: 08/11/21 Time of Service: 11:44 PT Notes Visit Reasons: TIA r/o CVA, R Carotid Artery Stenosis/Occlusion Physical Therapy Inpatient Initial Evaluation Date: 08/11/2021 Referring Doctor: Nicolasa Mcgrath NP Orders: PT CONSULT: Eval/Treat. Precautions: Fall. Standard. Activity as tolerated. Patient Profile/Admitting Diagnosis: Bjorn is an 81-year-old male who presented to the ED on 08/10/2021 due to a 3-hour period of confusion and disorientation. Patietn is diagnosed with TIA, carotid artery stenosis, Benign prostatic hyperplasia, and L leg swelling. Further testing is being conducted to rule out CVA. PMHX: Medical History (Updated 08/10/21 @ 22:17 by Nicolasa Mcgrath NP) Aortic valve sclerosis History of hemicolectomy Malignant neoplasm of intestinal tract Obstruction of right carotid artery Tinea pedis Surgical History (Updated 07/31/19 @ 11:36 by Ramu Patel) Extraction of cataract B/L 01/2015 Hemicolectomy 06/03/15; [facility]; RIGHT Hernia Repair, Incisional (08/10/16) Social History/Home Situation: Lives alone in an apartment with no steps to enter. States that niece helps out with his groceries and medical transport. Patient was independent with with all mobility ADL performance using the single point cane. Equipment Owned/DME: SPC Subjective: Agreeable to PT consult. Denies heaache, chest pain, and dizziness. Objective: [] General Observation: Supine in bed. TEDS in B legs.IV access in R UE. Mental Status: Alert and oriented as to person, place, time, and purpose. Able to pay attention, focus, and respond appropriately. Able to discriminate objects in surroundings, visual acuity intact. Pain: 0/10 Vital Signs: WNL as taken by CECILIA Goyal at start of PT consult ROM: Right Upper Extremity: Shoulder Flexion WFL. Shoulder abduction WFL. Elbow f lexion WFL. Wrist flexion WFL. Functional opening and closing of hand WFL. Left Upper Extremity: Shoulder Flexion WFL. Shoulder abduction WFL. Elbow flexion WFL. Wrist flexion WFL. Functional opening and closing of hand WFL. Right Lower Extremity: Hip flexion WFL. Hip abduction WFL. Knee flexion WFL. Ankle dorsiflexion WFL. Ankle plantarflexion WFL. Left Lower Extremity: Hip flexion WFL. Hip abduction WFL. Knee flexion WFL. Ankle dorsiflexion WFL. Ankle plantarflexion WFL. Strength: Right Upper Extremity: Shoulder flexors 4-/5. Shoulder abductors 4-/5. Elbow flexors 5/5. Elbow extensors 5/5. Outplacement Consultant strong. Left Upper Extremity: Shoulder flexors 4-/5. Shoulder abductors 4-/5. Elbow flexors 5/5. Elbow extensors 5/5. Outplacement Consultant strong. Right Lower Extremity: Hip flexors 4/5. Hip abductors 5/5. Knee flexors 5/5. Knee extensors 4/5. Ankle dorsiflexors 4/5. Ankle plantarflexors 5/5. Left Lower Extremity: Hip flexors 4/5. Hip abductors 5/5. Knee flexors 5/5. Knee extensors 4/5. Ankle dorsiflexors 4/5. Ankle plantarflexors 5/5. Bed Mobility/Transfers: Supine to sit supervision Sit to stand supervision Stand to sit stand by assist Bed to reclining chair stand by assist Reclining chair to bed stand by assist Gait: Instructed patient with level surface ambulation of 100 feet requiring contact guard assist. Denies headache, dizziness, and LOB. Balance: Static Sitting: Normal Dynamic Sitting: Normal Static Standing: Good Dynamic Standing: Fair Special Tests: Mobility Limitations Standardized Measure [facility]-PAC 6 clicks Basic Mobility Inpatient Short Form: Raw Score: 22 CMS Score: 21% deficit Informed Consent/Education: Patient was instructed in purpose of PT consult and plan of care. Agreeable to proceed with established PT POC to achieve personal goals. Assessment: Strength in B UE/LE symmetric. No hemineglect observed. No visual field impairment noted. Does require the use of an AD for more stability with ambulation activity. Will trial this afternoon and determine whether he is safe to go back to using the SPC. Requires stand by assist for all mobility ADL performance at this time. Patient presents with clinical signs and symptoms consistent with current/admitting diagnoses that have resulted to mobility limitations, gait instability, generalized weakness, and overall ADL decline as demonstrated by the following impairment level findings: 1. Decreased strength to B hip and ankle major muscle groups 2. Impaired standing balance 3. Impaired activity tolerance Impairments are contributing to the following functional limitations: 1. Difficulty with ambulation without assistive device and physical assistance 2. Increased completion time for mobility ADL performance 3. Increased risk for falls Patient is assessed as a 65800 moderate complexity based on the following: History: 81-year-old male with past medical history as indicated above Examination: Demonstrable impairment in strength, balance, and mobility level with underlying impairments and functional limitations as exhibited above as well as deficit score of 21% utilizing the [facility] Mobility Inpatient Short Form Presentation: Stable Decision Makin moderate complexity Goals: Goals X1 week 1. Supine-Sit independent 2. Sit-Supine independent 3. Sit-Stand independent 4. Stand-Sit independent with SPC 5. Bed-Chair independent with SPC 6. Chair-Bed independent with SPC 7. Independent gait on level surface with use of SPC for at least 500 feet without report of pain nor dyspnea 8. Good static and dynamic standing balance/tolerance Plan of Care/Treatment Plan: 1-2x/day, 7 days/week x 1 week. Plan of care has been reviewed with the [employer] providing the service under Physical Therapy direction. Initiate Physical Therapy intervention for pain management as needed, strengthening, bed mobility, transfers, gait, stairs, balance training, and use of assistive device. DISCHARGE RECOMMENDATIONS: Patient will benefit from home health PT services in order to progress mobility level using least restrictive assistive ambulatory device, assess home safety, identify additional equipment needs, and establish a functional maintenance program that will increase ability of patient to remain at home. TREATMENT CODE/TIME: 52499 x 26 minutes beginning at 11:44 AM. Thank you for the opportunity to participate in the care of this patient. Nelly Cohen PT, DPT, CLT [facility] [place], [place]
--- NOTE | 2021-08-11 15:07 | PT.INTREAT ---
Date of service: 08/11/21 Time of Service: 13:59 PT Notes Visit Reasons: TIA r/o CVA, R Carotid Artery Stenosis/Occlusion Inpatient Physical Therapy Treatment Note [facility] Date: 08/11/2021 PRECAUTIONS: Fall SUBJECTIVE: Bjorn is pleasant and agreeable to participating in PT. When asked if he would feel safe to return to home, he states if you asked me that on a normal day I wouldn't know how to answer that, same as today. Patient states that he isn't interested in going to a SNF. OBJECTIVE: PAIN: No c/o pain BED MOBILITY/TRANSFERS Supine-sit: I Sit-supine: I Sit-stand: S Stand-sit: S Bed-Chair: [] Chair-bed: [] GAIT Assistive Device: SPC Weight bearing: Full Assist: CGA-SBA Distance: 300' Deviation: Minimal path deviation THEREX: Patient was instructed in a LE and UE strengthening program, as per flow sheet, performed while seated at EOB. ASSESSMENT: Patient tolerated session well, without complaint. He was able to tolerate a progression in gait distance with SPC support and CGA-SBA, demonstrating only minimal path deviation. PLAN: Continue with global strengthening and general conditioning for improved mobility. TREATMENT CODE/TIME: 24 minutes; [id number], [id number] (13:59)
--- NOTE | 2021-08-11 16:29 | NCONE_ITS ---
Date of service: 08/11/21 Time of Service: 16:29 Assessment and Plan Assessment and plan (1) Right carotid artery occlusion: Status: Acute (2) Transient confusion: Status: Acute (3) Cognitive developmental delay: Status: Acute (4) Vitamin B12 deficiency: Status: Acute Assessment and plan: Mr. Perkins is an 81 year-old, left-handed man who was admitted with: #1. Transient confusion. His confusion was not associated with any focal neurological symptoms and thus not consistent with TIA/stroke. I think continue to work-up metabolic etiologies with a UA and TSH. Seizure remains in the differential though he doesn't have any risk factors for this. I think an EEG would be a good idea - outpatient is fine. Otherwise, not sure what happened - dehydration? other toxic-metabolic etiology? #2. Poor memory. He has baseline developmental cognitive delay. This makes it difficult to assess for dementia. Thus, I will see him again as an outpatient. Otherwise, his vitamin B12 is low. Please supplement with 1000mg IM now and than continue 1000mg PO daily. He will need to have his level checked in ~3 months to ensure oral absoprtion. #3. Right carotid occlusion. No need for clopidogrel as no concern for acute vascular event. He should stay on aspirin 81mg daily. Agree with the addition of a statin. Otherwise. He was very reluctant to come to the hospital at all and has rarely sought medical care over his lifetime. In addition to his vascular stenosis, he also has new wall motion changes on TTE compared to previous study in 2016. He is DNR/DNI. He may benefit from palliative care consult, outpatient is fine. He should follow-up in the neurology clinic in 4-6 weeks. History of Present Illness History of Present Illness Chief Complaint: transient confusion Narrative: Handedness: LEFT (only). HPI: Soy Landaverde, is an 81 year-old man with heart disease, known right carotid occlusion, arotic valve stenosis, colon cancer s/p hemicolectomy, macular degeneration, glaucoma, and BPH. Mr. Perkins was admitted yesterday after an episode of confusion. He had taken his scooter to the [place] which he often does. However, when there, the staff who knew him well noticed that he was acting oddly: confused and even scared. They contacted his niece Martha who watches out for him. Her Gabriele, an EMT, went to the [facility]. Noted Mr. Perkins had a hard time remembering who Martha was and how she was related to him. 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 He had no weakness, numbness, or focal neurological symptoms by report. They estimate that he remained confused about 2-3 hours and has been back to his baseline ever since. He underwent imaging as below and admitted with concern for TIA/stroke. He was started on ASA + clopidogrel (he had stropped aspirin in Oct 2020). His BP has remained in the 110-140s. No UA was done upon admission. No TSH. B12 195. A1c 5.8. LDL 129. Hgb 12. CMP ok. He has baseline cognitive deficits. He dropped out in his first year of high school. He notes he never got good grades. He had difficulty reading. 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 His niece describes him as reclusive. He never and has no children. 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 Then at some point moved to [place] with one of his brothers. About 6-7 years ago, that brother at which time he moved to [place] to be under the watch of his niece. He moved into the [employer] about 5 years ago. He stopped driving 10- 15 years ago due to poor vision. She notes chronic dysrathric speech that is stable and attributes it to his reclusiveness. He carries a diagnosis of right carotid occlusion in our EMR as far back as 2018. There are no mention of where or when this diagnosis was made. Neither Martha nor Soy know when this diagnosis was made but were vaguely aware of it. She notes Soy never went to the doctor prior to coming to [place]. He has no history of seizures or family history of seizures. He has no history of major head injuries (notes many concussion without LOC) or RESEARCH ENGINEER infection. He smokes 1-2 cigars per day. He does not drink ETOH. Work-up: -CTH: no acute findings. Moderate cerebral atrophy and chronic white matter changes. I reviewed these images personally and this is my personal interpretation. -CTA head/neck: proximal right common carotid occlusion with notes stenosis in the right ICA as well. The L ICA is quite dilated just after the bifurcation. There is no stenosis in the L ICA. There appears to be an absent L A1. Per rads, there is mild-moderate stenosis at the origin of the left vetebral artery. I reviewed these images personally and this is my personal interpretation. -MRI brain: no acute findings. Moderate generalized atrophy and severe chronic vascular changes. I reviewed these images personally and this is my personal interpretation. -TTE: no EF calculated. Segmental LV wall motion abnormalities with hypokinesis of the apical cap and inferolateral wall segments. Poor study and unable to assess aortic valve stenosis. LA normal. No PFO. -LLE venous scan: SVT in one of the 2 paired posterior tibialis veins. Consults Requesting physician: Ashley Lugo Review of Systems All systems reviewed & are unremarkable except as noted in HPI and below PFSH Medical History Aortic valve sclerosis History of hemicolectomy Malignant neoplasm of intestinal tract Obstruction of right carotid artery Tinea pedis Surgical History Extraction of cataract B/L 01/2015 Hemicolectomy 06/03/15; [facility]; RIGHT Hernia Repair, Incisional (08/10/16) Family History Brother Personal history of malignant neoplasm PROSTATE Brother No problems noted. Mother No problems noted. Father No problems noted. Social History Smoking/Tobacco Use Status: Former Tobacco Use Smoking risk assessment performed?: Yes Alcohol Intake: never Drug use: Never Substance use type: does not use Frequency: other Details: STRETCHES DAILY Seatbelt use: always Visit Medication and Allergies Active Medications Generic Name Dose Route Start Last Admin Trade Name Freq PRN Reason Stop Dose Admin Aspirin 81 mg 08/11/21 08:30 08/11/21 08:43 Aspirin 81 Mg Chew PO 81 mg DAILY AUTUMN Administration Clopidogrel Bisulfate 75 mg 08/11/21 08:30 08/11/21 08:43 Clopidogrel 75 Mg Tab PO 75 mg DAILY AUTUMN Administration Dimethicone/Zinc Oxide 0 gm 08/10/21 22:01 Matthew Protect Cream 142 Gm Tube TP PRN PRN Latanoprost 0 ml 08/11/21 22:00 Latanoprost 0.005% 2.5 Ml Btl OU HS AUTUMN Sodium Chloride 0 ml 08/10/21 18:06 08/10/21 18:06 Normal Saline Flush 10 Ml Syr IVP 10 ml PRN PRN Administration Tamsulosin HCl 0.4 mg 08/11/21 08:30 08/11/21 08:43 Tamsulosin 0.4 Mg Capcr PO 0.4 mg DAILY AUTUMN Administration Allergies terbinafine Allergy (Severe, Verified 08/10/21 16:36) swelling and redness of face Exam Narrative Exam Narrative: Physical Exam: Gen: Patient of apparent stated age, NAD Head and face: no facial or cranial abnormalities Neck: Supple, no meningismus, no occipital tenderness CV: + S1, S2, RRR, no murmur Resp: CTA B/L Abd: soft, nontender, nondistended Ext: Left leg larger than right leg with TEDS in place. No clubbing or cyanosis. No bony deformity. Neuro Exam: Language: fluency, naming, repetition, and comprehension intact; Mental Status: AAOxself and time; did not know city or hospital, current events and fund of knowledge limited; Speech: no dysarthria Cranial nerves: Funduscopy: not performed CN II: visual young intact CN III, IV, : extraocular movements intact, no nystagmus, pupils symmetric and reactive to light CN V: face sensation intact to LT and PP CN VII: no facial asymmetry noted CN VIII: hearing intact bilaterally CN IX, X: palate rises symmetrically CN XI: trapezius/SCM 5/5 bilaterally CN XII: protrudes tongue symmetrically Sensory: intact to LT, PP in all extremities Motor: bulk and tone intact. Fine motor movements intact bilaterally. No pronator drift. Strength 5/5 throughout including the deltoids, biceps, tric eps, wrist extensors, hip flexors, knee flexors, knee extensors, ankle flexors, and ankle extensors. Reflexes: hyporeflexic throughout; toes down going bilaterally; Coordination: FTN and HTS intact bilaterally Gait: not tested Results Last Vital Signs Temp 36.9 C 08/11/21 16:08 Pulse 60 08/11/21 16:08 Resp 18 08/11/21 16:08 BP 137/76 08/11/21 16:08 Pulse Ox 95 08/11/21 16:08 Labs Result diagrams: 08/11/21 06:20 08/11/21 06:20 Labs: Laboratory Results - last 24 hr 08/10/21 08/10/21 08/10/21 16:20 16:20 16:20 WBC 7.43 RBC 3.83 L Hgb 12.2 L Hct 36.9 L MCV 96.3 H MCH 31.9 MCHC 33.1 RDW 13.2 Plt Count 153 MPV 9.8 Immature Gran % 0.3 Neutrophils % 45.8 Lymphocytes % 39.8 Monocytes % 9.8 Eosinophils % 3.5 Basophils % 0.8 Nucleated RBC % 0 Absolute Neutrophils 3.40 Absolute Lymphocytes 2.96 Absolute Monocytes 0.73 Absolute Eosinophils 0.26 Absolute Basophils 0.06 Sodium 141 Potassium 4.1 Chloride 106 Carbon Dioxide 28.5 Anion Gap 6.5 BUN 20 H Creatinine 1.1 Estimated GFR/1.73 m2 >= 60.00 Glucose 97 Hemoglobin A1c Calcium 8.6 Magnesium 2.1 Total Bilirubin 0.5 AST 18 ALT 16 Alkaline Phosphatase 67 Troponin I < 0.05 NT-Pro-B Natriuret Pep Total Protein 7.4 Albumin 3.3 L Triglycerides Total Cholesterol LDL Cholesterol, Calc HDL Cholesterol Vitamin B12 Urine Color Urine Clarity Urine pH Ur Specific [place] Urine Protein Urine Ketones Urine Blood Urine Nitrite Urine Bilirubin Urine Urobilinogen Ur Leukocyte Esterase Urine Glucose COVID-19 Source SARS-CoV-2 (PCR) 08/10/21 08/10/21 08/11/21 19:03 19:26 06:20 WBC RBC Hgb Hct MCV MCH MCHC RDW Plt Count MPV Immature Gran % Neutrophils % Lymphocytes % Monocytes % Eosinophils % Basophils % Nucleated RBC % Absolute Neutrophils Absolute Lymphocytes Absolute Monocytes Absolute Eosinophils Absolute Basophils Sodium 140 Potassium 4.0 Chloride 108 H Carbon Dioxide 26.3 Anion Gap 5.7 BUN 17 Creatinine 0.9 Estimated GFR/1.73 m2 >= 60.00 Glucose 91 Hemoglobin A1c Calcium 7.8 L Magnesium Total Bilirubin AST ALT Alkaline Phosphatase Troponin I NT-Pro-B Natriuret Pep Total Protein Albumin Triglycerides Total Cholesterol LDL Cholesterol, Calc HDL Cholesterol Vitamin B12 Urine Color Cancelled Urine Clarity Cancelled Urine pH Cancelled Ur Specific [place] Cancelled Urine Protein Cancelled Urine Ketones Cancelled Urine Blood Cancelled Urine Nitrite Cancelled Urine Bilirubin Cancelled Urine Urobilinogen Cancelled Ur Leukocyte Esterase Cancelled Urine Glucose Cancelled COVID-19 Source Nasal/Nares SARS-CoV-2 (PCR) Negative 08/11/21 08/11/21 08/11/21 06:20 06:20 06:20 WBC 5.55 RBC 3.45 L Hgb 10.8 L Hct 32.9 L MCV 95.4 H MCH 31.3 MCHC 32.8 RDW 13.2 Plt Count 130 MPV 10.1 Immature Gran % 0.2 Neutrophils % 51.4 Lymphocytes % 31.7 Monocytes % 11.5 Eosinophils % 4.5 Basophils % 0.7 Nucleated RBC % 0 Absolute Neutrophils 2.85 Absolute Lymphocytes 1.76 Absolute Monocytes 0.64 Absolute Eosinophils 0.25 Absolute Basophils 0.04 Sodium Potassium Chloride Carbon Dioxide Anion Gap BUN Creatinine Estimated GFR/1.73 m2 Glucose Hemoglobin A1c 5.8 H Calcium Magnesium Total Bilirubin AST ALT Alkaline Phosphatase Troponin I NT-Pro-B Natriuret Pep Total Protein Albumin Triglycerides 68 Total Cholesterol 193 LDL Cholesterol, Calc 129 H HDL Cholesterol 51 Vitamin B12 195 Urine Color Urine Clarity Urine pH Ur Specific [place] Urine Protein Urine Ketones Urine Blood Urine Nitrite Urine Bilirubin Urine Urobilinogen Ur Leukocyte Esterase Urine Glucose COVID-19 Source SARS-CoV-2 (PCR) 08/11/21 08/11/21 06:20 08:47 WBC RBC Hgb Hct MCV MCH MCHC RDW Plt Count MPV Immature Gran % Neutrophils % Lymphocytes % Monocytes % Eosinophils % Basophils % Nucleated RBC % Absolute Neutrophils Absolute Lymphocytes Absolute Monocytes Absolute Eosinophils Absolute Basophils Sodium Cancelled Potassium Cancelled Chloride Cancelled Carbon Dioxide Cancelled Anion Gap Cancelled BUN Cancelled Creatinine Cancelled Estimated GFR/1.73 m2 Cancelled Glucose Cancelled Hemoglobin A1c Calcium Cancelled Magnesium Total Bilirubin AST ALT Alkaline Phosphatase Troponin I NT-Pro-B Natriuret Pep 296 Total Protein Albumin Triglycerides Total Cholesterol LDL Cholesterol, Calc HDL Cholesterol Vitamin B12 Urine Color Urine Clarity Urine pH Ur Specific [place] Urine Protein Urine Ketones Urine Blood Urine Nitrite Urine Bilirubin Urine Urobilinogen Ur Leukocyte Esterase Urine Glucose COVID-19 Source SARS-CoV-2 (PCR)
--- NOTE | 2021-08-11 17:14 | PGE_ITS ---
Date of Service Date of service: 08/11/21 Time of Service: 08:00 Assessment and Plan Assessment and plan (1) DVT (deep venous thrombosis): Start date: 08/11/21 Start time: 17:39 Status: Acute Assessment and plan: There is a DVT in one of the 2 paired posterior tibial veins which measures 2 cm in length. Started on eliquis, will place on protonix if not already on as well. Qualifiers: Affected thrombotic vein of extremity: tibial Chronicity: acute DVT location: lower extremity Laterality: left Qualified Code(s): I82.442 - Acute embolism and thrombosis of left tibial vein (2) TIA (transient ischemic attack): Start date: 08/11/21 Start time: 08:00 Status: Ruled-out Assessment and plan: R/o will check u/a and tsh as this was not done in ED or on admission MRI IMPRESSION: 1. No evidence of an acute infarct. 2. Cerebral atrophy and small vessel ischemic disease. 3. Findings consistent with the patient's moderate stenosis of the cavernous portion of the right ICA. B12 low given IM 1000 then po [address] Shah Stop plavix and continue asa Outpatient EEG per neurology as well (3) Carotid artery stenosis: Start date: 08/11/21 Start time: 17:26 Status: Acute Assessment and plan: Consult palliative for goals of care Started on statin for 40 mg daily for stenosis, will wait to see goals before deciding if patient wants to f/u with vascular (4) BPH (benign prostatic hyperplasia): Start date: 08/11/21 Start time: 17:28 Status: Chronic Assessment and plan: continue tamsulosin check u/a (5) Left leg swelling: Start date: 08/11/21 Start time: 17:28 Status: Acute Assessment and plan: Patient found to have DVT in LLE, will treat with lexy Sethi discussed with DR Bridges. (6) Discharge planning issues: Start date: 08/11/21 Start time: 17:40 Status: Acute Assessment and plan: likely dishcarge home in am. Subjective Subjective Interval history since last seen: Patient denies pain, ambulating well. B12 low, Venous study reveals 2 paired posterior tibialis veins measures 2 cm. Likely this is a mis read and patient has dvt in tibial either way will treat with eliquis for DVT to LLE. Per Dr. Shah, give b 12 IM and then PO daily. U/A and Tsh was not checked therefore we will keep him overnight and monitor labs and awaits u/s and tsh. plavix dcd. Statin 40 mg started due to carotid stenosis. Cholesterol is 193 with ldl 129. A1c 5.8. He is ambulatory with 1 assist. MRI revealing IMPRESSION: 1. No evidence of an acute infarct. 2. Cerebral atrophy and small vessel ischemic disease. 3. Findings consistent with the patient's moderate stenosis of the cavernous portion of the right ICA. Echo results: with left vent wall motion abnormalities involving hyokinesis, Exam Const General: cooperative and no acute distress HENMT Head: normal to inspection Face and sinus: normal facial exam Eyes General: appearance normal, both eyes and all related structures Pupils: PERRL EOM: EOM intact bilaterally Neck Neck: normal visual inspection and No submandibular swelling Lymphatic: no lymphadenopathy noted Chest Chest: normal inspection of the chest and no tenderness Resp Effort & Inspection: normal respiratory effort and able to speak in complete sentences Auscultation: clear to auscultation bilaterally Cardio Rate: regular rate Rhythm: regular rhythm GI Inspection: normal to inspection Palpation: soft, not firm, not rigid and nontender Auscultation: normal bowel sounds Back/Spine/Pelvis Thoracic/Lumbar Spine: thoracic and lumbar spine normal to inspection Skin General skin exam: no rashes or lesions noted Neuro General: patient alert, patient awake, patient oriented x3, moves all extremities, no meningeal signs and no focal motor deficits Cranial Nerves: CN's II-XI intact bilaterally Cognition: normal cognition Speech: speech normal Motor: muscle tone normal throughout, strength 5/5 throughout and no pronator drift Sensory Exam: no sensory deficits noted Extrem General: normal to inspection, full ROM, capillary refill normal, no calf tenderness bilaterally and edema Laterality: left Psych Appearance: grossly normal Mental Status: mental status grossly normal Speech and Movement: speech and movement normal Affect: normal affect Objective Last Vital Signs Temp 36.9 C 08/11/21 16:08 Pulse 60 08/11/21 16:08 Resp 18 08/11/21 16:08 BP 137/76 08/11/21 16:08 Pulse Ox 95 08/11/21 16:08 Laboratory Results - last 24 hr 08/10/21 08/10/21 08/11/21 19:03 19:26 06:20 WBC RBC Hgb Hct MCV MCH MCHC RDW Plt Count MPV Immature Gran % Neutrophils % Lymphocytes % Monocytes % Eosinophils % Basophils % Nucleated RBC % Absolute Neutrophils Absolute Lymphocytes Absolute Monocytes Absolute Eosinophils Absolute Basophils Sodium 140 Potassium 4.0 Chloride 108 H Carbon Dioxide 26.3 Anion Gap 5.7 BUN 17 Creatinine 0.9 Estimated GFR/1.73 m2 >= 60.00 Glucose 91 Hemoglobin A1c Calcium 7.8 L NT-Pro-B Natriuret Pep Triglycerides Total Cholesterol LDL Cholesterol, Calc HDL Cholesterol Vitamin B12 Urine Color Cancelled Urine Clarity Cancelled Urine pH Cancelled Ur Specific [place] Cancelled Urine Protein Cancelled Urine Ketones Cancelled Urine Blood Cancelled Urine Nitrite Cancelled Urine Bilirubin Cancelled Urine Urobilinogen Cancelled Ur Leukocyte Esterase Cancelled Urine Glucose Cancelled COVID-19 Source Nasal/Nares SARS-CoV-2 (PCR) Negative 08/11/21 08/11/21 08/11/21 06:20 06:20 06:20 WBC 5.55 RBC 3.45 L Hgb 10.8 L Hct 32.9 L MCV 95.4 H MCH 31.3 MCHC 32.8 RDW 13.2 Plt Count 130 MPV 10.1 Immature Gran % 0.2 Neutrophils % 51.4 Lymphocytes % 31.7 Monocytes % 11.5 Eosinophils % 4.5 Basophils % 0.7 Nucleated RBC % 0 Absolute Neutrophils 2.85 Absolute Lymphocytes 1.76 Absolute Monocytes 0.64 Absolute Eosinophils 0.25 Absolute Basophils 0.04 Sodium Potassium Chloride Carbon Dioxide Anion Gap BUN Creatinine Estimated GFR/1.73 m2 Glucose Hemoglobin A1c 5.8 H Calcium NT-Pro-B Natriuret Pep Triglycerides 68 Total Cholesterol 193 LDL Cholesterol, Calc 129 H HDL Cholesterol 51 Vitamin B12 195 Urine Color Urine Clarity Urine pH Ur Specific [place] Urine Protein Urine Ketones Urine Blood Urine Nitrite Urine Bilirubin Urine Urobilinogen Ur Leukocyte Esterase Urine Glucose COVID-19 Source SARS-CoV-2 (PCR) 08/11/21 08/11/21 06:20 08:47 WBC RBC Hgb Hct MCV MCH MCHC RDW Plt Count MPV Immature Gran % Neutrophils % Lymphocytes % Monocytes % Eosinophils % Basophils % Nucleated RBC % Absolute Neutrophils Absolute Lymphocytes Absolute Monocytes Absolute Eosinophils Absolute Basophils Sodium Cancelled Potassium Cancelled Chloride Cancelled Carbon Dioxide Cancelled Anion Gap Cancelled BUN Cancelled Creatinine Cancelled Estimated GFR/1.73 m2 Cancelled Glucose Cancelled Hemoglobin A1c Calcium Cancelled NT-Pro-B Natriuret Pep 296 Triglycerides Total Cholesterol LDL Cholesterol, Calc HDL Cholesterol Vitamin B12 Urine Color Urine Clarity Urine pH Ur Specific [place] Urine Protein Urine Ketones Urine Blood Urine Nitrite Urine Bilirubin Urine Urobilinogen Ur Leukocyte Esterase Urine Glucose COVID-19 Source SARS-CoV-2 (PCR)
[2021-08-11] MEDS: Cyanocobalamin 1000 MCG/ML VIAL IM/SC (18:08)
--- NOTE | 2021-08-11 18:21 | INITIAL_ITS ---
- If Service Date Differs Date of service: 08/11/21 Time of Service: 18:21 Care Management Initial Assess REASON FOR HOSPITALIZATION:: TIA r/o CVA PAST MEDICAL HISTORY/PAST SURGICAL HISTORY:: Aortic valve sclerosis. History of hemicolectomy. Malignant neoplasm of intestinal tract. Obstruction of right carotid artery. Tinea pedis. Extraction of cataract. B/L 01/2015. Hemicolectomy. 06/03/15; [facility]; RIGHT. Hernia Repair, Incisional (08/10/16) PREVIOUS FUNCTIONAL STATUS/SOCIAL/FAMILY SUPPORTS:: Bjorn resides at [facility], his niece is his main support and resides locally. CURRENT FUNCTIONAL STATUS:: Bjorn remains pleasantly confused, CM to connect with Guardian regarding discharge planning considerations. ADVANCE DIRECTIVES:: None on file. Has patient been provided with info about the portal/API?: No Did the patient sign up for the portal?: No CODE STATUS:: DNR/DNI INSURANCE COVERAGE / FINANCIAL ISSUES:: Medicare. Medicaid CURRENT HOME/COMMUNITY SERVICES/EQUIPMENT:: [facility] RN/PT, MOW, Homemaker, Transportation. Requires assistance with all ADLs, uses cane. PRIMARY CARE PHYSICIAN:: Freddie Celis POTENTIAL DISCHARGE NEEDS:: Palliative consult for goals of care, coordinated return to community. PATIENT/FAMILY EDUCATION NEEDS:: Review of discharge instructions, discuss Ask Me [employer]. ANTICIPATED BARRIERS TO DISCHARGE:: None identified. TRANSPORTATION:: Via private vehicle with his niece. PLAN:: Bjorn will return home when ready per MD. He will have new orders for V NA/RN/PT/OT and transport via private vehicle with his niece. He will follow up with his PCP and plan of care as prescribed.
[2021-08-11 18:51] LABS: Bilirubin Negative (Negative); Blood Small (Negative); Clarity Sl Cloudy (Clear); Glucose Negative (Negative); Ketones Negative (Negative); Leukocyte Esterase Trace (Negative); Nitrite Negative (Negative); Specific Gravity 1.015 (1.005-1.025); Urobilinogen 0.2 EU/dL (Up TO 0.2); pH 6.5 (5-8)
[2021-08-11 18:56] LABS: Bacteria Many HPF (Negative); C & S Indicated? Yes; Casts Negative LPF (Negative); Crystals Negative HPF (Negative); Epithelial Cells Negative HPF (Negative); Mucus Negative (Negative); RBC Negative HPF (0-2); WBC 20-50 HPF (0-5)
[2021-08-11] MEDS: Apixaban 5 MG TAB 10 MG PO (20:57)
[2021-08-11] MEDS: Atorvastatin 40 MG TAB PO (20:57)
[2021-08-11] MEDS: Latanoprost 0.005% 2.5 ML BTL OU (23:28)
[2021-08-12] MEDS: Normal Saline Flush 10 ML SYR IVP (00:06)
[2021-08-12 03:34] VITALS: BP 102/58; PULSE 62; RESP 18; TEMP 36.6; O2SAT 95
[2021-08-12 07:32] VITALS: BP 136/74; PULSE 62; RESP 18; TEMP 36.8; O2SAT 96
[2021-08-12 09:11] LABS: TSH (W/Ref FT4) 4.23 uIU/mL (0.36-3.74)
[2021-08-12 09:37] LABS: FREE T4 0.95 ng/dL (0.76-1.46)
[2021-08-12] MEDS: Tamsulosin 0.4 MG CAPCR PO (09:52)
[2021-08-12] MEDS: Cyanocobalamin 500 MCG TAB 1000 MCG PO (09:52)
[2021-08-12] MEDS: Apixaban 5 MG TAB 10 MG PO (09:52)
[2021-08-12] MEDS: Aspirin 81 MG CHEW PO (09:52)
--- NOTE | 2021-08-12 11:12 | INDS_ITS ---
Date of service: 08/19/21 Time of Service: 11:12 PT Notes Visit Reasons: TIA r/o CVA, R Carotid Artery Stenosis/Occlusion Physical Therapy Inpatient Discharge Summary Date: 08/12/2021 Dates of service: 08/11/2021 through 08/12/2021 Referring Doctor: Nicolasa Mcgrath NP Orders: PT CONSULT: Eval/Treat. Precautions: Fall. Standard. Activity as tolerated. Patient Profile/Admitting Diagnosis: Bjorn is an 81-year-old male who presented to the ED on 08/10/2021 due to a 3-hour period of confusion and disorientation. Patietn is diagnosed with TIA, carotid artery stenosis, Benign prostatic hyperplasia, and L leg swelling. Further testing is being conducted to rule out CVA. PMHX: Medical History (Updated 08/10/21 @ 22:17 by Nicolasa Mcgrath NP) Aortic valve sclerosis History of hemicolectomy Malignant neoplasm of intestinal tract Obstruction of right carotid artery Tinea pedis Surgical History (Updated 07/31/19 @ 11:36 by Ramu Patel) Extraction of cataract B/L 01/2015 Hemicolectomy 06/03/15; [facility]; RIGHT Hernia Repair, Incisional (08/10/16) Social History/Home Situation: Lives alone in an apartment with no steps to enter. States that niece helps out with his groceries and medical transport. Patient was independent with with all mobility ADL performance using the single point cane. Equipment Owned/DME: SPC Subjective: Agreeable to PT consult. Denies headache, chest pain, and dizziness. Objective: General Observation: Supine in bed. TEDS in B legs.IV access in R UE. Mental Status: Alert and oriented as to person, place, time, and purpose. Able to pay attention, focus, and respond appropriately. Able to discriminate objects in surroundings, visual acuity intact. Pain: 0/10 ROM: Right Upper Extremity: Shoulder Flexion WFL. Shoulder abduction WFL. Elbow flexion WFL. Wrist flexion WFL. Functional opening and closing of hand WFL. Left Upper Extremity: Shoulder Flexion WFL. Shoulder abduction WFL. Elbow flexion WFL. Wrist flexion WFL. Functional opening and closing of hand WFL. Right Lower Extremity: Hip flexion WFL. Hip abduction WFL. Knee flexion WFL. Ankle dorsiflexion WFL. Ankle plantarflexion WFL. Left Lower Extremity: Hip flexion WFL. Hip abduction WFL. Knee flexion WFL. Ankle dorsiflexion WFL. Ankle plantarflexion WFL. Strength: Right Upper Extremity: Shoulder flexors 4-/5. Shoulder abductors 4-/5. Elbow flexors 5/5. Elbow extensors 5/5. Junior Electrical Engineer strong. Left Upper Extremity: Shoulder flexors 4-/5. Shoulder abductors 4-/5. Elbow flexors 5/5. Elbow extensors 5/5. Junior Electrical Engineer strong. Right Lower Extremity: Hip flexors 4/5. Hip abductors 5/5. Knee flexors 5/5. Knee extensors 4/5. Ankle dorsiflexors 4/5. Ankle plantarflexors 5/5. Left Lower Extremity: Hip flexors 4/5. Hip abductors 5/5. Knee flexors 5/5. Knee extensors 4/5. Ankle dorsiflexors 4/5. Ankle plantarflexors 5/5. Bed Mobility/Transfers: Supine to sit independent Sit to stand independent Stand to sit independent Bed to reclining chair independent Reclining chair to bed independent Gait: Instructed patient with level surface ambulation of 250 feet +200 feet requiring supervision assist. Denies headache, dizziness, and LOB. Balance: Static Sitting: Normal Dynamic Sitting: Normal Static Standing: Good Dynamic Standing: Fair Assessment: Strength in B UE/LE symmetric. No hemineglect observed. No visual field impairment noted. Does require the use of an AD for more stability with ambulation activity. Patient presents with clinical signs and symptoms consistent with current/admitting diagnoses that have resulted to mobility limitations, gait instability, generalized weakness, and overall ADL decline as demonstrated by the following impairment level findings: 1. Decreased strength to B hip and ankle major muscle groups 2. Impaired standing balance 3. Impaired activity tolerance Impairments are contributing to the following functional limitations: 1. Difficulty with ambulation without assistive device and physical assistance 2. Increased completion time for mobility ADL performance 3. Increased risk for falls Goals: Goals X1 week 1. Supine-Sit independent MET 2. Sit-Supine independent MET 3. Sit-Stand independent MET 4. Stand-Sit independent with SPC MET 5. Bed-Chair independent with SPC MET 6. Chair-Bed independent with SPC MET 7. Independent gait on level surface with use of SPC for at least 500 feet without report of pain nor dyspnea NOT MET 8. Good static and dynamic standing balance/tolerance NOT MET DISCHARGE RECOMMENDATIONS: Patient will benefit from home health PT services in order to progress mobility level using least restrictive assistive ambulatory device, assess home safety, identify additional equipment needs, and establish a functional maintenance program that will increase ability of patient to remain at home. TREATMENT CODE/TIME: 13743 x 24 minutes beginning at 11:12 AM. Thank you for the opportunity to participate in the care of this patient. Nelly Cohen PT, DPT, CLT [facility] [place], [place]
--- NOTE | 2021-08-12 12:22 | DSE_ITS ---
Date of service: 08/12/21 Time of Service: 12:22 DS: Diagnosis Discharge Diagnosis (1) Right carotid artery occlusion: Status: Acute (2) Transient confusion: Status: Acute (3) Cognitive developmental delay: Status: Acute (4) Vitamin B12 deficiency: Status: Acute (5) UTI (urinary tract infection): Status: Acute Asessment and Plan: culture still pending given one dose of fosfomycin Discharge Plan Disposition Patient Disposition: HOME W/HOME HEALTH SERVICE Condition: Stable Discharge Details Reason For Visit: TIA r/o CVA, R Carotid Artery Stenosis/Occlusion Admit Date/Time: 08/10/21 18:57 Admit Provider: Sumanth Gilmore Attending Provider: Sumanth Gilmore Primary Care Provider: Freddie Celis Hospital Course Hospital Course: This is an 81 year old male with history of CAD, BPH, colon cancer who was referred to the ED from urgent care for c/o a 3 hour period of confusion and dis orientation. On arrival his symptoms have resolved. He underwent a routine stroke evaluation. He had no focal deficits on exam. He is oriented x3. EKG notes a rate of 68, sinus, right bundle branch block, no STEMI and nondiagnostic. CTA head and neck showed mild to moderate stenosis of cavernous right ICA and occlusion right common carotid artery, diminished flow/enhancement right ICA via collateral flow from the ECA. Severe apparent stenosis proximal right ICA, with segment of moderate to severe stenosis at the mid cervical segment right ICA, and [id number] stenosis origin left vertebral artery. His case was discussed with [facility] neurology who reviewed the CTA images. Patient has significant vascular disease but this may be chronic. Agrees with plan for admission and MRI brain tomorrow for possible TIA. Recommends adding Plavix 75 mg p.o. daily to his 81 mg aspirin regimen for dual antiplatelet therapy. hospitalist services is contacted and accepts him in admission for further work up and monitoring. He was noted to have a DVT after ultrasound obtained for left lower extremity swelling. His MRI showed no acute findings or infarct. He was evaluated by neurology and since confusion was not associated with any focal neurological symptoms and not consistent with TIA/stroke. Plavix was discontinued, and recommended to continue to work-up metabolic etiologies with a UA and TSH. UA reflexed for culture and he was given a one time dose of fosfomycin while awaiting culture report. TSH was slightly elevated at 4.23, should be followed outpatient with no medication additions or changes while hospitalized. Seizure remains in the differential though he doesn't have any risk factors for this. she recommends an EEG which could be performed outpatient. discussed with Dr Bridges. Home Meds and New Rx's Prescriptions: New Eliquis 5 mg Tablet 10 mg PO BID Qty: 66 RF: 0 atorvastatin 40 mg Tablet 40 mg PO QPM Qty: 30 RF: 0 cyanocobalamin (vitamin B-12) [Vitamin B-12] 500 mcg Tablet 1,000 mcg PO DAILY Qty: 30 RF: 0 Continued tamsulosin 0.4 mg capsule 0.4 mg PO DAILY Qty: 90 RF: 3 latanoprost 2.5 ML drops 1 drp OU HS RF: 0 aspirin [Aspirin Low-Strength] 81 MG tablet,chewable 81 mg PO DAILY Qty: 30 RF: 2 triamcinolone acetonide 80 GM ointment 1 applic Topical BID Qty: 80 RF: 2 dorzolamide-timolol 22.3-6.8 mg/mL drops 1 drp ophthalmic (eye) BID RF: 0 ketoconazole 2 % cream 1 applic TOPICAL Q48H RF: 0 Discharge Instructions Instructions: Urinary Tract Infection in Men (DC), Deep Vein Thrombosis (DC), Carotid Artery Disease (DC), Vitamin B12 Deficiency (ED) Additional Instructions: you have received a one dose antibiotic for urinary tract infection, if you have any symptoms of urinary retention, frequency, urgency or burning you should report to your pcp. you were found to have a blood clot in your left leg. please continue eliquis (apixaban) 10 mg twice daily for 12 more doses, then decreased to 5 mg twice daily we do not feel your presenting symptoms are consistent with TIA, your doctor may want an outpatient EEG to evaluate for seizures. you also were found to have carotid stenosis and should follow up outpatient for further recommendations. you have been started on atorvastatin and should continue aspirin daily. your TSH was slightly elevated at 4.23, your doctor will follow this outpatient, no new medication at this time. Stand Alone Forms: Nursing Discharge Form Referrals: Freddie Celis [Primary Care Provider] - 08/19/21 9:00 am (Dr. Celis is out of the office for the next few weeks so your appointment is with Osmar Lara. If you need to change your appointment just give the office a call.) Activity:: Activity as Tolerated Equipment/Supplies:: No Equipment Needed Diet:: As Tolerated Discharge Orders Discharge Orders: Discharge Order (Routine); Ordered 08/12/21 Ordered By: Nicolasa Mcgrath Discharge Data Discharge Date/Time-TO BE ENTERED AT DEPARTURE: 08/12/21 15:39 DS: Summary Time Spent with Patient providing and/or coordinating discharge services: Greater than 30 minutes Status at Discharge Functional status at discharge: independent ambulation Overall status at discharge: patient is back to baseline Mental Status: mental status grossly normal Speech and Movement: speech and movement normal Mood: congruent mood Affect: normal affect Exam Const General: cooperative and no acute distress HENMT Head: normal to inspection Face and sinus: normal facial exam Eyes General: appearance normal, both eyes and all related structures Pupils: PERRL EOM: EOM intact bilaterally Neck Neck: normal visual inspection and No submandibular swelling Lymphatic: no lymphadenopathy noted Chest Chest: normal inspection of the chest and no tenderness Resp Effort & Inspection: normal respiratory effort and able to speak in complete sentences Auscultation: clear to auscultation bilaterally Cardio Rate: regular rate Rhythm: regular rhythm GI Inspection: normal to inspection Palpation: soft, not firm, not rigid and nontender Auscultation: normal bowel sounds Back/Spine/Pelvis Thoracic/Lumbar Spine: thoracic and lumbar spine normal to inspection Skin General skin exam: no rashes or lesions noted Neuro General: patient alert, patient awake, patient oriented x3, moves all extremities, no meningeal signs and no focal motor deficits Cranial Nerves: CN's II-XI intact bilaterally Cognition: normal cognition Speech: speech normal Motor: muscle tone normal throughout, strength 5/5 throughout and no pronator drift Sensory Exam: no sensory deficits noted Extrem General: normal to inspection, full ROM, capillary refill normal, no calf tenderness bilaterally and edema Laterality: left Psych Appearance: grossly normal Mental Status: mental status grossly normal Speech and Movement: speech and movement normal Mood: congruent mood Affect: normal affect DS: Data Vitals/I&O Vitals and I&O: Vital Signs Temperature 36.8 C 08/12/21 07:32 Temperature Source Tympanic 08/12/21 07:32 Pulse 62 08/12/21 07:32 Pulse Rhythm Regular 08/12/21 08:15 Pulse 69 08/10/21 19:16 Respiratory Rate 18 08/12/21 07:32 Respiratory Effort Non-Labored 08/12/21 08:15 Respiratory Depth Normal 08/12/21 08:15 Respiratory Pattern Normal 08/12/21 08:15 Blood Pressure 136/74 08/12/21 07:32 Blood Pressure Mean 89 08/10/21 19:16 Blood Pressure Position Supine 08/10/21 16:23 Pulse Oximetry 96 08/12/21 07:32 Oxygen Delivery Method Room Air 08/12/21 07:32 Oxygen Flow Rate 0 08/12/21 07:32 Pain Level 0 08/12/21 07:32 Intake & Output 08/11/21 08/12/21 08/12/21 23:59 11:59 23:59 Intake Total 2 / 2 Output Total 250 / 250 700 / 700 Balance -250 / -140 -698 / -698 Intake: IV 2 / 2 Output: Urine 250 / 250 700 / 700 Other: Urine Color Straw Yellow Urine Appearance Clear Clear Urine Odor Strong Normal Stool Size Large Stool Characteristics Formed Voiding Methods Urinal Urinal Data Completed and Pending Labs on day of discharge: Labs from last 24 hours 08/12/21 08/11/21 07:12 17:55 TSH 4.23 H Free T4 0.95 Urine Color Yellow Urine Clarity Sl Cloudy Urine pH 6.5 Ur Specific [place] 1.015 Urine Protein Negative Urine Ketones Negative Urine Blood Small H Urine Nitrite Negative Urine Bilirubin Negative Urine Urobilinogen 0.2 Ur Leukocyte Esterase Trace H Urine RBC Negative Urine WBC 20-50 H Ur Epithelial Cells Negative Urine Crystals Negative Urine Bacteria Many Urine Casts Negative Urine Mucus Negative Ur Culture Indicated? Yes Urine Glucose Negative 08/11/21 17:55 Urine - Reflex from Urine Culture - Pending Preliminary micro results at discharge 08/11/21 17:55 Urine Culture - Pending Urine - Reflex from [facility] Medical History (Updated 08/12/21 @ 14:21 by Violeta Augustin NP) Aortic valve sclerosis History of hemicolectomy Malignant neoplasm of intestinal tract Obstruction of right carotid artery Palliative care patient Tinea pedis Surgical History Extraction of cataract B/L 01/2015 Hemicolectomy 06/03/15; [facility]; RIGHT Hernia Repair, Incisional (08/10/16) Family History Brother Personal history of malignant neoplasm PROSTATE Brother No problems noted. Mother No problems noted. Father No problems noted. Social History Smoking/Tobacco Use Status: Former Tobacco Use Smoking risk assessment performed?: Yes Alcohol Intake: never Drug use: Never Substance use type: does not use Frequency: other Details: STRETCHES DAILY Seatbelt use: always
[2021-08-12 12:26] VITALS: BP 128/92; PULSE 75; RESP 16; TEMP 36.2; O2SAT 98
--- NOTE | 2021-08-12 12:34 | PDOC.HHF2F_ITS ---
Home Health Certification Home Health Certification: 1. Encounter Date and Reason I certify that Bjorn Perkins was seen by Nicolasa Mcgrath on 08/12/21 and that I had a [id number] encounter with this patient that meets the physician face to face encounter requirements. 2. Clinical Findings Supporting Skilled Need and Homebound Status I certify that home health services are medically necessary, include either intermittent senior care and/or physical/speech therapy, and that this patient is homebound in that absences from the home require considerable and taxing effort and are infrequent or of short duration, or are attributable to the need to receive medical care. [X] (a) Attached documentation from encounter provides clinical findings supporting skilled need and homebound status (including what assistance patient requires to leave the home). The encounter with the patient was in whole, or in part, for the following medical condition, which is the primary reason for home health care: TIA r/o CVA, R Carotid Artery Stenosis/Occlusion, UTI Mcfp: routine nursing for medication oversight, routine assessment, disease management Physical and occupational Therapy: routine evaluation and treatment Homebound: unable to safely leave the house unassisted d/t activity intolerance and unsteady gait 3. Certification and Authentication I certify that I composed the above information based on my clinical judgment relating to this patient's medical condition and, if applicable, clinical findings communicated to me by the NPP or inpatient physician who performed the Home Health Referral. All further orders will be obtained through Dr Freddie Celis (Community Based Physician - PCP)
[2021-08-12] MEDS: Fosfomycin Tromethamine 3 GM PACKET PO (12:52)
--- NOTE | 2021-08-12 13:39 | PCNE_ITS ---
Date of service: 08/12/21 Time of Service: 13:39 History of Present Illness Narrative: Soy is an 81 year old man with a past medical history significant for CAD, BPH, colon cancer with Hx of hemicolectomy and Aortic stenosis who was referred to the ED from urgent care for c/o a 3 hour period of confusion and disorientation. He was found to have a LLE DVT and was started on Apixiban. His MRI brain did not show acute findings or infarct. Neurology was consulted and did not feel that he had TIA/CVA. He received fosfomycin for question UTI. Seizure remains on the differential. He is being discharged from the hospital, his work-up will be continued as an outpatient. Palliative was consulted to discuss goals of care. He does not have a health care agent in writing and he does not want to complete any paperwork today but he states that Freda Guillen, his niece would make decisions for him if he is unable to do so. She is his last surviving relative. He uses a cane and an electric scooter to get around, he denies having any falls at home. He has days that he feels weaker than others. He is feeling back to baseline. He remembers feeling confused a couple of days ago. He lives at the [facility], he has been there for a couple of years and he likes it there. He will have home health upon discharge, he is unsure if he will find that helpful or not. He is open to follow up with Palliative care as an outpatient. Assessment and Plan Assessment and plan (1) UTI (urinary tract infection): Status: Acute (2) Vitamin B12 deficiency: Status: Acute (3) Cognitive developmental delay: Status: Acute (4) Transient confusion: Status: Acute (5) DVT (deep venous thrombosis): Status: Acute Qualifiers: Affected thrombotic vein of extremity: tibial Chronicity: acute DVT location: lower extremity Laterality: left Qualified Code(s): I82.442 - Acute embolism and thrombosis of left tibial vein (6) Carotid artery stenosis: Status: Acute (7) BPH (benign prostatic hyperplasia): Status: Chronic (8) Aortic valve sclerosis: Status: Acute (9) Malignant neoplasm of intestinal tract: Status: Acute (10) History of hemicolectomy: Status: Acute (11) Palliative care patient: Status: Acute Assessment and plan: Soy is a very pleasant 81 year old man with a past medical history significant for CAD, BPH, colon cancer with Hx of hemicolectomy and Aortic stenosis. He was seen at [facility] for palliative care to discuss goals of care. He was admitted for a 3 hour period of confusion. TIA/CVA was ruled out a fter work up. He was found to have a LLE DVT and was started on anticoagulation. Seizure is still a possibility and his work-up will be continued as an outpatient. He was treated for UTI with fosfomycin, question whether the period of confusion was r/t UTI. He is being discharged home with home health services today. We met prior to his discharge. We talked about the importance of having documen tation of a health care agent but he states he does not believe in that. He states Freda is his last living relative, she is his niece and she would be the one to make decisions for him. He has previously established that he is a DNR/DNI. He does not have a COLST on file. He agrees to follow up with palliative as an outpatient. I will have the office call him to set up a visit. Review of Systems All systems reviewed & are unremarkable except as noted in HPI and below [facility] Medical History (Updated 08/12/21 @ 14:21 by Violeta Augustin NP) Aortic valve sclerosis History of hemicolectomy Malignant neoplasm of intestinal tract Obstruction of right carotid artery Palliative care patient Tinea pedis Surgical History Extraction of cataract B/L 01/2015 Hemicolectomy 06/03/15; [facility]; RIGHT Hernia Repair, Incisional (08/10/16) Family History Brother Personal history of malignant neoplasm PROSTATE Brother No problems noted. Mother No problems noted. Father No problems noted. Social History Smoking/Tobacco Use Status: Former Tobacco Use Smoking risk assessment performed?: Yes Alcohol Intake: never Drug use: Never Substance use type: does not use Frequency: other Details: STRETCHES DAILY Seatbelt use: always Exam Narrative Exam Narrative: General: pleasant 81 year old man, sitting up in the recliner, alert and oriented. Talkative. HEENT: normocephalic, atraumatic, EOMI, mucous membranes moist, edentulous. Neck: supple, no JVD. Respiratory: respirations appear even and unlabored, lung sounds are clear throughout. Cardiovascular: heart sounds regular, +murmur. GI: +BS, abdomen is soft, nontender on palpation, nondistended . Extremities: LLE with trace edema, no edema to RLE. Results Last Vital Signs Temp 36.2 C L 08/12/21 12:26 Pulse 75 08/12/21 12:26 Resp 16 08/12/21 12:26 BP 128/92 H 08/12/21 12:26 Pulse Ox 98 08/12/21 12:26 Labs Result diagrams: 08/11/21 06:20 08/11/21 06:20 Labs: Laboratory Results - last 24 hr 08/11/21 08/12/21 17:55 07:12 TSH 4.23 H Free T4 0.95 Urine Color Yellow Urine Clarity Sl Cloudy Urine pH 6.5 Ur Specific [place] 1.015 Urine Protein Negative Urine Ketones Negative Urine Blood Small H Urine Nitrite Negative Urine Bilirubin Negative Urine Urobilinogen 0.2 Ur Leukocyte Esterase Trace H Urine RBC Negative Urine WBC 20-50 H Ur Epithelial Cells Negative Urine Crystals Negative Urine Bacteria Many Urine Casts Negative Urine Mucus Negative Ur Culture Indicated? Yes Urine Glucose Negative
--- NOTE | 2021-08-12 14:13 | CHAPLAIN ---
Bjorn was sitting up watching tv when I visited. He told me he lives in an apartment in [place]. ([place]). At first he couldn't remember the name of the town, but he said he hasn't lived there long. (According PC notes, he lived there a couple of years.) He moved to [place] from near [place], [place] to live closer to a niece who looks out for him. 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 He talked about events that happened on the family farm. He asked for more coffee.
== END 2021-08-12 15:39 | disposition home health service (06) ==
LOC: ER 19:23 → MS 08-11 08:33
PROVIDERS: Nurse Practitioner Acute Care; Nurse Practitioner Family; Admitting Provider Family Medicine; Emergency Provider Physician Assistant; PCP Family Medicine; Visit Provider Family Medicine
DX: R41.0 Disorientation, unspecified (principal); I65.21 Occlusion and stenosis of right carotid artery; I82.442 Acute embolism and thrombosis of left tibial vein; F81.9 Developmental disorder of scholastic skills, unspecified; E53.8 Deficiency of other specified B group vitamins; N39.0 Urinary tract infection, site not specified; I25.10 Atherosclerotic heart disease of native coronary artery without angina pectoris; N40.0 Benign prostatic hyperplasia without lower urinary tract symptoms; I45.10 Unspecified right bundle-branch block; I35.0 Nonrheumatic aortic (valve) stenosis; Z98.0 Intestinal bypass and anastomosis status; Z85.038 Personal history of other malignant neoplasm of large intestine; Z79.899 Other long term (current) drug therapy; Z20.822 Contact with and (suspected) exposure to COVID-19
CPT/HCPCS: 36415; 70496; 70498; 80048; 80053; 80061; 87635; 93005; 96360; 97110; 97162; 97530; 99223; 99285; 70551; 71046; 81003; 81015; 82607; 83036; 83735; 83880; 84439; 84443; 84484; 85025; 87086; 93010; 93306; 93971; 99217; 99219; 99226; G0378; J3420; J3490

== ENCOUNTER → 2021-08-11 08:53 | Outpatient (BNVA) | payer MEDICARE, MEDICAID, SELFPAY | PROVIDERS: PCP Family Medicine; Referring Provider Family Medicine; Visit Provider Psychiatry & Neurology Neurology | DX: R69 Illness, unspecified (principal) ==

== ENCOUNTER 2023-09-07 18:26 | Outpatient (REF) | payer MEDICARE, MEDICAID, SELFPAY ==
[2023-09-07 21:14] LABS: Bilirubin Negative (Negative); Blood Large (Negative); Clarity Turbid (Clear); Glucose Negative (Negative); Ketones Negative (Negative); Leukocyte Esterase Small (Negative); Nitrite Negative (Negative); Specific Gravity >= 1.030 (1.005-1.025); Urobilinogen 0.2 mg/dL (Up to 0.2); pH 5.5 (5-8)
[2023-09-07 21:31] LABS: C & S Indicated? Yes
[2023-09-07 21:32] LABS: Crystals Many Amorphous HPF (Negative)
== END 2023-09-07 18:27 | disposition home or self-care (01) ==
LOC: LBN 18:26
PROVIDERS: PCP Family Medicine; Visit Provider Family Medicine
DX: R82.89 Other abnormal findings on cytological and histological examination of urine; R39.9 Unspecified symptoms and signs involving the genitourinary system
CPT/HCPCS: 81003; 81015; 87086

== ENCOUNTER 2024-02-28 21:23 | Outpatient (REF) | payer MEDICARE, MEDICAID, SELFPAY | END 2024-02-28 21:24 | disposition home or self-care (01) | LOC: LBN 21:23 | PROVIDERS: PCP Family Medicine; Visit Provider Family Medicine | DX: N39.0 Urinary tract infection, site not specified (principal) | CPT/HCPCS: 85025; 87086 ==